=== PATIENT | male | born 1995 | race Caucasian/White ===

== ENCOUNTER → 2016-12-17 | Outpatient (REF) | payer OTHER ==
[2016-12-17 22:35] LABS: MICROSCOPIC INDICATED? MAN YES (NO)
[2016-12-17 22:43] LABS: BACTERIA, URINE NONE SEEN; CALCIUM OXALATE CRYSTALS,URINE SMALL AMOUNT /hpf; MICROSCOPIC EXAM PERFORMED; RBC, URINE 0-1 /hpf (0-3); SQUAMOUS EPITHELIAL CELL URINE NONE SEEN /hpf (SMALL AMT); WBC, URINE 0-1 /hpf (0-3)
[2016-12-18 14:29] LABS: HYALINE CAST, URINE NONE SEEN /lpf (0-1)
== END ==
LOC: M LAB REF 09:19
PROVIDERS: ATTEND Physician Assistant
DX: R53.83 Other fatigue (principal); R50.9 Fever, unspecified; M54.5 Low back pain

== ENCOUNTER → 2019-01-15 | Outpatient (CLI) | payer BC, OTHER ==
--- NOTE | 2019-01-15 11:45 | REP ---
Two views abdomen: 01/15/2019. Indication: Fatigue. Comparison: 07/15/2014. Findings: There are no air-fluid levels throughout the small or large bowel. There is no free intraperitoneal air. The visualized organs are normal. No acute osseous abnormalities are present. Pelvic phleboliths are redemonstrated. Impression: No acute abdominal process. Electronically Signed by Catalino Zapata DO 01/15/2019 11:37 A
[2019-01-15 13:40] LABS: BASO % 0.3 % (0.0-1.0); EOS % 0.3 % (0.0-3.0); HEMATOCRIT 41.6 % (42.0-52.0); HEMOGLOBIN 14.1 g/dl (13.5-17.5); LYMPH # 2.8 10^3/uL (1.5-5.0); LYMPH % 41.9 % (24.0-44.0); MEAN CORPUSCULAR HEMOGLOBIN 29.6 pg (27.0-33.0); MEAN CORPUSCULAR HGB CONC 33.9 g/dl (32.0-36.5); MEAN CORPUSCULAR VOLUME 87.2 fl (80.0-96.0); MONO # 0.7 10^3/uL (0.0-0.8); NEUTROPHILS # 3.1 10^3/uL (1.5-8.5); NEUTROPHILS % 46.4 % (36.0-66.0); PLATELET COUNT, AUTOMATED 320 10^3/uL (150-450); RED BLOOD COUNT 4.77 10^6/uL (4.30-6.10); WHITE BLOOD COUNT 6.7 10^3/uL (4.0-10.0)
[2019-01-15 14:09] LABS: ALBUMIN 3.9 GM/DL (3.2-5.2); ALT/SGPT 47 U/L (12-78); AMYLASE 34 U/L (25-115); BILIRUBIN,TOTAL 0.6 MG/DL (0.2-1.0); BLOOD UREA NITROGEN 16 MG/DL (7-18); CALCIUM LEVEL 9.4 MG/DL (8.5-10.1); CARBON DIOXIDE LEVEL 29 MEQ/L (21-32); CHLORIDE LEVEL 105 MEQ/L (98-107); CREATININE FOR GFR 1.27 MG/DL (0.70-1.30); FREE T4 1.29 NG/DL (0.76-1.46); GLOMERULAR FILTRATION RATE > 60.0 (>60); GLUCOSE, FASTING 88 MG/DL (70-100); LIPASE 102 U/L (73-393); POTASSIUM SERUM 4.4 MEQ/L (3.5-5.1); SODIUM LEVEL 140 MEQ/L (136-145); THYROID STIMULATING HORMONE 0.779 uIU/ML (0.358-3.740)
[2019-01-15 14:15] LABS: ERYTHROCYTE SEDIMENTATION RATE 5 mm/hr (0-15)
[2019-01-16 14:27] LABS: EBV VIRAL CAPSID AG IgM <36.0 U/mL (0.0-35.9)
== END ==
LOC: M WUC 11:12
PROVIDERS: ATTEND Physician Assistant
DX: R10.84 Generalized abdominal pain (principal); R53.83 Other fatigue

== ENCOUNTER 2019-05-26 16:06 | Emergency (ER) | payer OTHER, BC ==
[~2019-05-26] VITALS: Ht 182.9 cm; Wt 99.9 kg
[2019-05-26] MEDS ORDERED: TYLE (16:13)
[2019-05-26] MEDS ORDERED: BENA25CA4 PO (16:22)
[2019-05-26] MEDS ORDERED: FAMOTIDINE INJ 20MG/2ML VIAL (S0028) IVP ONE (17:00)
[2019-05-26] MEDS ORDERED: methylPREDNISolone INJ 125 MG/2 ML VIAL (J2930) IV ONE (17:00)
[2019-05-26] MEDS ORDERED: PRED20TA PO (17:35)
[2019-05-26 18:19] VITALS: BP 120/69
== END 2019-05-26 18:21 | disposition home or self-care (01) ==
LOC: M ED 16:06
DX: L29.9 Pruritus, unspecified (principal); Z79.899 Other long term (current) drug therapy; Z88.0 Allergy status to penicillin; Z88.8 Allergy status to other drugs, medicaments and biological substances
CPT/HCPCS: 96374; 99284; J2930

== ENCOUNTER → 2019-06-07 | Outpatient (REF) | payer OTHER ==
[~2019-06-07] MED LIST: BENA25CA4 PO; PRED20TA PO; TYLE
== END ==
LOC: M LAB REF 17:03
PROVIDERS: ATTEND Physician Assistant
DX: J02.9 Acute pharyngitis, unspecified (principal)

== ENCOUNTER 2019-10-21 13:24 | Inpatient (IN) | payer BC, OTHER ==
[~2019-10-21] VITALS: Ht 182.9 cm; Wt 92.6 kg
[~2019-10-21 13:24] MED LIST changes: -FLOM0.4C39 PO; -PHEN25IN3 IJ; -PROTPAK PO; -ULTR37.54 PO; -ZOFR4TAB16 PO
[2019-10-21] MEDS ORDERED: PHEN25IN3 IJ (13:34)
[2019-10-21] MEDS ORDERED: ONDANSETRON 4MG/2ML VIAL IV ONE (14:00)
[2019-10-21] MEDS ORDERED: MORPHINE 4 MG/ML 1ML VIAL/SYRINGE (J2270) IV ONE (14:00)
[2019-10-21] MEDS ORDERED: NS 1,000 ML IV ONE ×2 (14:00→15:30)
[2019-10-21 14:37] LABS: BASO % 0.1 % (0.0-1.0); HEMOGLOBIN 15.3 g/dl (13.5-17.5); LYMPH # 1.3 10^3/uL (1.5-5.0); LYMPH % 8.3 % (24.0-44.0); MEAN CORPUSCULAR HEMOGLOBIN 29.5 pg (27.0-33.0); MEAN CORPUSCULAR HGB CONC 35.6 g/dl (32.0-36.5); MONO # 1.1 10^3/uL (0.0-0.8); NEUTROPHILS # 12.8 10^3/uL (1.5-8.5); NEUTROPHILS % 84.1 % (36.0-66.0); PLATELET COUNT, AUTOMATED 428 10^3/uL (150-450); RED BLOOD COUNT 5.18 10^6/uL (4.30-6.10); WHITE BLOOD COUNT 15.2 10^3/uL (4.0-10.0)
[2019-10-21 15:08] LABS: BILIRUBIN,DIRECT 0.2 MG/DL (0.0-0.2); BILIRUBIN,TOTAL 0.6 MG/DL (0.2-1.0); CALCIUM LEVEL 11.1 MG/DL (8.5-10.1); CREATININE FOR GFR 1.55 MG/DL (0.70-1.30); POTASSIUM SERUM 4.1 MEQ/L (3.5-5.1)
--- NOTE | 2019-10-21 16:03 | REPVR ---
PROCEDURE INFORMATION: Exam: XR Chest, 1 View Exam date and time: 10/21/2019 3:40 PM Age: 24 years old Clinical indication: Cough, fever TECHNIQUE: Imaging protocol: XR of the chest Views: 1 view. COMPARISON: 1. CR - Abdomen,Flat Upright,PA CHEST 07/10/2014 4:57 PM 2. ME - ABDOMEN 1 VIEW (KUB) 10/21/2019 12:57:53 PM FINDINGS: Limitations: The patient is rotated. Lungs: No central pulmonary vascular congestion. The right lung appears well aerated. There is slight increased diffuse ground-glass opacity of the left lateral mid and lower lung; this is asymmetric compared to the right lung. Pleural space: No pleural effusion. No pneumothorax. Heart/Mediastinum: The cardiomediastinal silhouette is within normal limits for size and contour. Bones/joints: No acute osseous abnormality. Soft tissues: A long curvilinear metallic wire opacity projects over the left lateral lung and left lateral chest wall. Gastrointestinal tract: The stomach is incompletely imaged. The imaged stomach appears largely distended with gas. IMPRESSION: 1. Nonspecific slight increased diffuse opacity of the left lateral mid and lower lung. It is unclear if this is artifactual and secondary to the patient's rotated positioning or if this represents true pulmonary airspace opacity. Pulmonary infection is possible in this patient with given history of cough and fever. Re-evaluation with a dedicated nonportable upright non-rotated chest x-ray may be useful. 2. A long curvilinear metallic wire opacity projects over the left lateral lung and left lateral chest wall. Clinical correlation is needed for its identification and to determine whether this lies outside the patient or inside the patient. It could represent a wire associated with a face mask. 3. The stomach is incompletely imaged. The imaged stomach appears largely distended with gas. Electronically signed by: Osmel Espinoza On 10/21/2019 16:03:44 PM
[2019-10-21] MEDS ORDERED: ISOVUE-370 76% 100ML VIAL As Ordered ONE (16:29)
--- NOTE | 2019-10-21 17:01 | REPVR ---
PROCEDURE INFORMATION: Exam: CT Abdomen And Pelvis With Contrast Exam date and time: 10/21/2019 4:48 PM Age: 24 years old Clinical indication: Abdominal pain; Additional info: Abd pain, abnormal kub-dilated bowel loop TECHNIQUE: Imaging protocol: Computed tomography of the abdomen and pelvis with intravenous contrast. Radiation optimization: All CT scans at this facility use at least one of these dose optimization techniques: automated exposure control; mA and/or kV adjustment per patient size (includes targeted exams where dose is matched to clinical indication); or iterative reconstruction. Contrast material: ISO 370; Contrast volume: 100 ml; Contrast route: INTRAVENOUS (IV); COMPARISON: CT ABD PELVIS W/O CONTRAST 07/15/2014 4:50 PM FINDINGS: Liver: The liver is moderately fatty enlarged 195 mm. Gallbladder and bile ducts: Normal. No calcified stones. No ductal dilation. Pancreas: Normal. No ductal dilation. Spleen: Normal. No splenomegaly. Adrenals: Normal. No mass. Kidneys and ureters: Normal. No hydronephrosis. Stomach and bowel: There is scattered colonic diverticula. There is a slightly prominent left upper quadrant small bowel loop at 24 mm no evidence of a transition zone possibly a focal ileus. Appendix: No evidence of appendicitis. Intraperitoneal space: Unremarkable. No free air. No significant fluid collection. Vasculature: Unremarkable. No abdominal aortic aneurysm. Lymph nodes: Unremarkable. No enlarged lymph nodes. Bladder: Unremarkable as visualized. Reproductive: Unremarkable as visualized. Bones/joints: Unremarkable. No acute fracture. Soft tissues: Unremarkable. IMPRESSION: 1. Possible mild focal small-bowel ileus left side. 2. Fatty enlarged liver. Electronically signed by: Dillon Medellin On 10/21/2019 17:01:35 PM
[2019-10-21 19:07] LABS: BLOOD UREA NITROGEN 31 MG/DL (7-18); CREATININE FOR GFR 1.34 MG/DL (0.70-1.30); GLOMERULAR FILTRATION RATE > 60.0 (>60)
[2019-10-21] MEDS ORDERED: MORPHINE 2 MG/ML 1ML VIAL (J2270) IV PRN (21:15)
[2019-10-21] MEDS: NS 1,000 ML IV SCH (21:44)
[2019-10-21] MEDS: MORPHINE 2 MG/ML 1ML VIAL (J2270) IV PRN (23:45)
--- NOTE | 2019-10-21 23:48 | HPEPDOC ---
[facility] Medical History & Physical Date of Admission Oct 21, 2019 Date of Service: Oct 21, 2019 History and Physical CHIEF COMPLAINT: Abdominal pain HISTORY OF PRESENT ILLNESS: Patient is 24 year old healthy male presented to the ER today with complaints of worsening abdominal pain with concern for an ileus. Pain started on Saturday suddenly without any known etiology associated with nausea, vomiting and diarrhea. Pain described as sharp, severe epigastric radiating midline but does shift all over the abdomen depending on his lying position. He has not been able to tolerate PO intake and has just been in bed for several days. Reportedly went to his father in law's medical office and had his bloodwork and CT abdomen done showing evidence of ileus and ALYSE and was sent to the hospital. He appear to be in moderate discomfort now. Denies other complaints apart from abdominal pain including chest pain, SOB, fever or chills. PAST MEDICAL HISTORY: Refer to HPI PAST SURGICAL HISTORY: None SOCIAL HISTORY: Denies tobacco, alcohol or drugs. FAMILY HISTORY: Mother- DM and OA ALLERGIES: Please see below. REVIEW OF SYSTEMS: 10 point ROS negative except as above HOME MEDICATIONS: Please see below. PHYSICAL EXAMINATION: VITAL SIGNS: Please see below. GENERAL: Moderate distress HEENT: Normocephalic, atraumatic, moist mucous membranes NECK: Supple CARDIOVASCULAR EXAMINATION: Normal rate, normal rhythm RESPIRATORY EXAMINATION: Clear to auscultation, no wheezing ABDOMINAL EXAMINATION: Soft, nondistended, diffuse tenderness with some guarding, no rebound tenderness, no flank bruising EXTREMITIES: Range of motion intact SKIN: No rash NEUROLOGICAL EXAMINATION: Alert and oriented 3, no focal deficits PSYCHIATRIC EXAMINATION: cooperative LABORATORY DATA: See below. IMAGING: CT Abdomen/Pelvis- IMPRESSION: 1. Possible mild focal small-bowel ileus left side. 2. Fatty enlarged liver. MICROBIOLOGY: Please see below. ASSESSMENT AND PLAN: 1. Abdominal pain - CT suspect for ileus, no major obstruction noted. - Unable to tolerate PO intake at this time. NPO for bowel rest. - IVF resuscitation, and IV analgesia with Zofran PRN for nausea. - If pain does not improve in AM, should consult surgery for evaluation. - Unsure why fatty liver is present on imaging. Patient denies alcohol use. - Liver enzymes and ALP WNL. Will check lipid panel, A1c, and hepatitis panel. 2. ALYSE - Likely pre-renal with poor PO intake for several days. - Cr 1.55, improved to 1.34 after 2L IVF. - c/w maintenance fluid. Recheck BMP in AM. DVT ppx: SCD Code status: Full code Vital Signs Vital Signs Date Time Temp Pulse Resp B/P (MAP) Pulse Ox O2 Delivery O2 Flow Rate FiO2 10/21/19 22:52 18 10/21/19 22:50 99.6 66 130/61 (84) 98 Room Air Laboratory Data Labs 24H Laboratory Tests 2 10/21/19 14:20: Immature Granulocyte % (Auto) 0.5, Neutrophils (%) (Auto) 84.1H, Lymphocytes (%) (Auto) 8.3L, Monocytes (%) (Auto) 7.0H, Eosinophils (%) (Auto) 0.0, Basophils (% ) (Auto) 0.1, Neutrophils # (Auto) 12.8H, Lymphocytes # (Auto) 1.3L, Monocytes # (Auto) 1.1H, Eosinophils # (Auto) 0.0, Basophils # (Auto) 0.0, Nucleated Red Blood Cells % (auto) 0.0, Anion Gap 7L, Glomerular Filtration Rate 58.0L, Calcium Level 11.1H, Total Bilirubin 0.6, Direct Bilirubin 0.2, Aspartate Amino Transf (AST/SGOT) 13, Alanine Aminotransferase (ALT/SGPT) 31, Alkaline Phosphatase 93, Total Protein 9.0H, Albumin 5.0, Albumin/Globulin Ratio 1.3, Lipase 147 10/21/19 17:56: Glomerular Filtration Rate > 60.0 CBC/BMP Laboratory Tests 10/21/19 14:20 10/21/19 17:56 Microbiology Microbiology 10/21/19 Respiratory Virus Panel (PCR) ([facility]) - Final, Complete Home Medications No Active Prescriptions or Reported Meds Allergies Coded Allergies: Penicillins (Verified Allergy, Intermediate, HIVES, 05/26/19) sulfamethoxazole (Verified Allergy, Intermediate, SWELLING/HIVES, 10/21/19) trimethoprim (Verified Allergy, Intermediate, HIVES, 10/21/19) A-FIB/CHADSVASC A-FIB History Current/History of A-Fib/PAF?: No Current PO Anticoag Therapy: No LETA SALGUERO MD Oct 21, 2019 23:48
[2019-10-22] MEDS: NS 1,000 ML IV SCH ×3 (02:47→16:48)
[2019-10-22] MEDS: MORPHINE 2 MG/ML 1ML VIAL (J2270) IV PRN ×4 (03:22→22:24)
[2019-10-22 06:58] LABS: HEMATOCRIT 38.5 % (42.0-52.0); MEAN CORPUSCULAR HEMOGLOBIN 29.1 pg (27.0-33.0); MEAN CORPUSCULAR HGB CONC 34.3 g/dl (32.0-36.5); PLATELET COUNT, AUTOMATED 351 10^3/uL (150-450); RED BLOOD COUNT 4.53 10^6/uL (4.30-6.10); WHITE BLOOD COUNT 11.1 10^3/uL (4.0-10.0)
[2019-10-22 07:11] LABS: HEMOGLOBIN 13.2 g/dl (13.5-17.5)
[2019-10-22 07:29] LABS: BLOOD UREA NITROGEN 27 MG/DL (7-18); CALCIUM LEVEL 9.1 MG/DL (8.5-10.1); CARBON DIOXIDE LEVEL 25 MEQ/L (21-32); CHLORIDE LEVEL 113 MEQ/L (98-107); CREATININE FOR GFR 1.17 MG/DL (0.70-1.30); GLOMERULAR FILTRATION RATE > 60.0 (>60); GLUCOSE, FASTING 107 MG/DL (70-100); SODIUM LEVEL 144 MEQ/L (136-145)
[2019-10-22 10:35] VITALS: BP 163/82
[2019-10-22] MEDS: ONDANSETRON 4MG/2ML VIAL IV PRN ×2 (13:01→22:23)
[2019-10-22 14:00] VITALS: BP 151/82
--- NOTE | 2019-10-22 15:04 | IPNPDOC ---
Subjective Date Seen The patient was seen on 10/22/19. Subjective Chief Complaint/HPI abdominal pain Events since last encounter patient seen this afternoong, complaining of crampy abdominal pain, left side, had been having diarrhea for the past few days, no BM today. had vomiting as well. But none today. He still feels weak, does not want to eat yet. No sick contacts. did not eat anything raw, no new medications taken. passing gas. Objective Physical Examination General Exam: Positive: Alert, No Acute Distress Eye Exam: Positive: PERRLA, Conjunctiva & lids normal, EOMI; Negative: Sclera icteric ENT Exam: Positive: Atraumatic, Mucous membr. moist/pink, Pharynx Normal Neck Exam: Positive: Supple; Negative: JVD, thyromegaly Chest Exam: Positive: Clear to auscultation, Normal air movement Heart Exam: Positive: Rate Normal, Regular Rhythm, Normal S1, Normal S2; Negative: Murmurs, Rubs Telemetry: Positive: No significant arrhythmia Abdomen Exam: Positive: Normal bowel sounds, Soft, Other (abdominal tenderness on left lower quadrant, no rigidity, no rebound ); Negative: Tenderness, Hepatospenomegaly Male Exam: Positive: Normal Genital Exam Extremity Exam: Positive: Normal pulses; Negative: Clubbing, Cyanosis, Edema Skin Exam: Positive: Nl turgor and temperature; Negative: Rash, Breakdown Neuro Exam: Positive: Normal Gait, Normal Speech, Cranial Nerves 3-12 NL, Reflexes 2+ Psych Exam: Positive: Mental status NL, Mood NL, Oriented x 3 Assessment /Plan Assessment ASSESSMENT: 1. acute diarrhea, abdominal pain, possible enteritis 2. Acute kidney injury, pre-renal from fluid losses 3. Fatty liver PLANS: * reviewed ct abdomen done, no transition point. He is passing gas. Given history of diarrhea, likely has gastroenteritis. No longer vomiting, abdomen is soft. * advance diet to liquids, ice chips. * IV fluids to continue for hydration, lower rate. * Will hold off antibiotics for now, as diarrhea had subsided. * will repeat labsi n Am. hopefully able to advance diet soon. * noted fatty liver, agree with lipid profile check and hepatitis paenl, a1c * Discussed with patient Plan/VTE VTE Prophylaxis Ordered?: No VTE Exclusion Mechanical Proph: Low Risk for VTE VS, I&O, 24H, Fishbone Vital Signs/I&O Vital Signs Date Time Temp Pulse Resp B/P (MAP) Pulse Ox O2 Delivery O2 Flow Rate FiO2 10/22/19 14:00 99.2 55 18 151/82 (105) 98 10/22/19 10:52 Room Air I&O- Last 24 Hours up to 6 AM 10/22/19 06:00 Intake Total 2000 ml Output Total 0 ml Balance 2000 ml Laboratory Data 24H LABS Laboratory Tests 2 10/21/19 17:56: Glomerular Filtration Rate > 60.0 10/22/19 06:29: Glomerular Filtration Rate > 60.0, Nucleated Red Blood Cells % (auto) 0.0, Anion Gap 6L, Calcium Level 9.1# CBC/BMP Laboratory Tests 10/21/19 17:56 10/22/19 06:29 Microbiology Microbiology 10/21/19 Respiratory Virus Panel (PCR) ([facility]) - Final, Complete TE,IHSAN Sorto MD Oct 22, 2019 15:04
[2019-10-22 18:10] LABS: CHOLESTEROL LEVEL 170 MG/DL (<200); CHOLESTEROL RISK RATIO 5.312 (<5); FERRITIN 306 NG/ML (26-388); HDL CHOLESTEROL 32 MG/DL (>40); LDL CHOLESTEROL 120 MG/DL (<100); NON-HDL-C 138 MG/DL; TRIGLYCERIDES LEVEL 89 MG/DL (<150)
[2019-10-22 19:35] LABS: HEMOGLOBIN A1c 5.7 %
[2019-10-22 22:00] VITALS: BP 148/79
[2019-10-23] MEDS ORDERED: ONDANSETRON 4MG/2ML VIAL IV ONE (01:30)
[2019-10-23] MEDS: MORPHINE 2 MG/ML 1ML VIAL (J2270) IV PRN ×2 (01:40→10:18)
[2019-10-23] MEDS: NS 1,000 ML IV SCH ×2 (05:18→21:00)
[2019-10-23 06:00] VITALS: BP 114/65
[2019-10-23 06:09] LABS: ALBUMIN 3.6 GM/DL (3.2-5.2); ALT/SGPT 22 U/L (12-78); BILIRUBIN,TOTAL 0.8 MG/DL (0.2-1.0); BLOOD UREA NITROGEN 23 MG/DL (7-18); CALCIUM LEVEL 8.8 MG/DL (8.5-10.1); CARBON DIOXIDE LEVEL 27 MEQ/L (21-32); CHLORIDE LEVEL 114 MEQ/L (98-107); CREATININE FOR GFR 1.17 MG/DL (0.70-1.30); GLOMERULAR FILTRATION RATE > 60.0 (>60); GLUCOSE, FASTING 98 MG/DL (70-100); POTASSIUM SERUM 3.8 MEQ/L (3.5-5.1); SODIUM LEVEL 140 MEQ/L (136-145); TOTAL PROTEIN 6.3 GM/DL (6.4-8.2)
[2019-10-23 10:16] LABS: HEPATITIS B SURFACE ANTIGEN NEGATIVE (NEGATIVE)
[2019-10-23] MEDS: ONDANSETRON 4MG/2ML VIAL IV PRN ×2 (10:17→21:00)
[2019-10-23 10:44] LABS: HEPATITIS B CORE ANTIBODY IGM NEGATIVE (NEGATIVE); HEPATITIS C VIRUS ABY INDEX 0.1 INDEX (<0.8)
[2019-10-23] MEDS: GASTROGRAFIN SOLUTION 30ML PO SCH ×2 (11:16→11:30)
[2019-10-23] MEDS: PANTOPRAZOLE 40MG VIAL (C9113 PER 1) IV SCH (11:16)
[2019-10-23 11:54] LABS: HEPATITIS A ANTIBODY IGM NEGATIVE (NEGATIVE)
[2019-10-23] MEDS ORDERED: ISOVUE-370 76% 100ML VIAL As Ordered ONE (12:00)
[2019-10-23 12:14] LABS: APPEARANCE, URINE CLEAR (CLEAR); BACTERIA, URINE AUTO NEGATIVE (NEGATIVE); BILIRUBIN, URINE AUTO NEGATIVE (NEGATIVE); BLOOD, URINE BLOOD NEGATIVE (NEGATIVE); COLOR, URINE YELLOW (YELLOW); GLUCOSE, URINE (UA) AUTO NEGATIVE (NEGATIVE); KETONE, URINE AUTO TRACE mg/dL (NEGATIVE); LEUKOCYTE ESTERASE, URINE AUTO NEGATIVE (NEGATIVE); MUCUS, URINE SMALL (NEGATIVE); NITRITE, URINE AUTO NEGATIVE (NEGATIVE); PROTEIN, URINE AUTO NEGATIVE (NEGATIVE); RBC, URINE AUTO 0 /HPF (0-3); SPECIFIC GRAVITY URINE AUTO 1.025 (1.002-1.035); SQUAMOUS EPITHELIAL CELL UR AU 0 /HPF (0-6); WBC, URINE AUTO 0 /HPF (0-3)
--- NOTE | 2019-10-23 13:13 | REPVR ---
PROCEDURE INFORMATION: Exam: CT Abdomen And Pelvis With Contrast Exam date and time: 10/23/2019 12:20 PM Age: 24 years old Clinical indication: Abdominal pain; Generalized; Additional info: Recurrent abdominal pain TECHNIQUE: Imaging protocol: Computed tomography of the abdomen and pelvis with intravenous contrast. Radiation optimization: All CT scans at this facility use at least one of these dose optimization techniques: automated exposure control; mA and/or kV adjustment per patient size (includes targeted exams where dose is matched to clinical indication); or iterative reconstruction. Contrast material: ISOVUE 370; Contrast volume: 100 ml; Contrast route: INTRAVENOUS (IV); COMPARISON: CT ABD/PEL W/IV CONTRAST ONLY 10/21/2019 4:32 PM FINDINGS: Liver: Moderate hepatomegaly with diffuse fatty infiltration. Gallbladder and bile ducts: Normal. No calcified stones. No ductal dilation. Pancreas: Normal. No ductal dilation. Spleen: Normal. No splenomegaly. Adrenals: Normal. No mass. Kidneys and ureters: Normal. No hydronephrosis. Stomach and bowel: There is diffuse gastric fundus mucosal wall thickening which could be secondary to underdistention or gastritis. Interval resolution of the focal small bowel ileus in the left upper quadrant noted on the previous study.There is no evidence for intestinal obstruction. Appendix: No evidence of appendicitis. Intraperitoneal space: Unremarkable. No free air. No significant fluid collection. Vasculature: Unremarkable. No abdominal aortic aneurysm. Lymph nodes: Unremarkable. No enlarged lymph nodes. Bladder: Unremarkable as visualized. Reproductive: Unremarkable as visualized. Bones/joints: Unremarkable. No acute fracture. Soft tissues: Unremarkable. Other findings: No evidence of acute abnormality in the abdomen. IMPRESSION: 1. Moderate hepatomegaly with diffuse fatty infiltration. 2. There is diffuse gastric fundus mucosal wall thickening which could be secondary to underdistention or gastritis. 3. Interval resolution of the focal small bowel ileus in the left upper quadrant noted on the previous study.There is no evidence for intestinal obstruction. 4. No evidence of acute abnormality in the abdomen. Electronically signed by: Aguilar Jason On 10/23/2019 13:13:58 PM
[2019-10-23 14:00] VITALS: BP 131/64
--- NOTE | 2019-10-23 15:24 | IPNPDOC ---
Text Note Date of Service The patient was seen on 10/23/19. NOTE subjective: Patient is seen this morning. patient mentioned that he has been having dysuria, pressure suprapubic region. No penile discharges were noted. No diarrhea. No vomiting. he still has crampy abdominal pain, seems worse when he eats liquids. His pain is 5/10 at present, cramping left sided, no back pain noted, objective: Vital Sign - Last 24 Hours 10/22/19 10/22/19 10/22/19 10/22/19 15:53 16:05 22:00 22:24 Temp 99.8 Pulse 59 Resp 15 15 16 16 B/P (MAP) 148/79 (102) Pulse Ox 97 O2 Delivery Room Air Room Air 10/22/19 10/23/19 10/23/19 10/23/19 22:34 01:40 01:50 06:00 Temp 99.5 Pulse 63 Resp 16 16 14 18 B/P (MAP) 114/65 (81) Pulse Ox 98 O2 Delivery Room Air Room Air Room Air Room Air 10/23/19 10/23/19 10/23/19 10:18 11:16 14:00 Temp 99.2 Pulse 78 Resp 15 15 14 B/P (MAP) 131/64 (86) Pulse Ox 96 O2 Delivery Room Air general: awake, alert, oriented x 3. appears more comfortable today than yesterday. HEENT: anicteric sclerae, no nasal discharges, no throat exudates noted. Neck: supple, no cervical tenderness, no bruits, no stridor noted Chest; clear breath sounds, no rales or wheezing CVS: s1 and s2 distinct, no murmurs Abdomen: soft, epigastric tenderness, no RUQ tenderness, no rigidity noted, no guarding, positive left lower quadrant and flank tenderness Extremities: No edema, no calf tenderness, no rigidity , no joint effusions noted [place] MAGISTRATE: awake, alert, oriented x 3. No focal deficits noted repeat CT scan today 1. Moderate hepatomegaly with diffuse fatty infiltration. 2. There is diffuse gastric fundus mucosal wall thickening which could be secondary to underdistention or gastritis. 3. Interval resolution of the focal small bowel ileus in the left upper quadrant noted on the previous study.There is no evidence for intestinal obstruction. 4. No evidence of acute abnormality in the abdomen Laboratory Tests 2 10/23/19 00:18: Urine Color YELLOW, Urine Appearance CLOUDYH, Urine pH 6.0, Urine Specific [place] 1.028, Urine Protein NEGATIVE, Urine Glucose (UA) NEGATIVE, Urine Ketones TRACEH, Urine Blood NEGATIVE, Urine Nitrite NEGATIVE, Urine Bilirubin NEGATIVE, Urine Urobilinogen 4.0H, Urine Leukocyte Esterase NEGATIVE, Urine WBC (Auto) 0, Urine RBC (Auto) 0, Urine Hyaline Casts (Auto) 0, Urine Bacteria (Auto) NEGATIVE, Urine Squamous Epithelial Cells 0, Urine Amorphous Sediment SMALLH, Urine Mucus (Auto) SMALL, Urine Sperm (Auto) 10/23/19 05:22: Anion Gap , Glomerular Filtration Rate > 60.0, Calcium Level 8.8, Total Bilirubin 0.8, Aspartate Amino Transf (AST/SGOT) 9, Alanine Aminotransferase (ALT/SGPT) 22, Alkaline Phosphatase 62, Total Protein 6.3#L, Albumin 3.6#, Albumin/Globulin Ratio 1.3 10/23/19 11:13: Urine Color YELLOW, Urine Appearance CLEAR, Urine pH 6.0, Urine Specific [place] 1.025, Urine Protein NEGATIVE, Urine Blood NEGATIVE, Urine Nitrite NEGATIVE, Urine Bilirubin NEGATIVE, Urine Urobilinogen 4.0H, Urine WBC (Auto) 0, Urine RBC (Auto) 0, Urine Hyaline Casts (Auto) 0, Urine Bacteria (Auto) NEGATIVE, Urine Squamous Epithelial Cells 0, Urine Mucus (Auto) SMALL, Urine Sperm (Auto) , Urine Glucose (Auto)(UA) NEGATIVE, Urine Ketones (Auto) TRACEH, Urine Leukocyte Esterase (Auto) NEGATIVE ASSESSMENT: 1. acute diarrhea, abdominal pain, possible enteritis 2. Acute kidney injury, pre-renal from fluid losses 3. Fatty liver 4. Hepatomegaly and fatty liver 5. Ileus, resolved 6. Hyperlipidemia, LDL 120 PLANS: No RUQ tenderness, noted hepatomegaly, with fatty liver, neg hep panel, discussed on importance to monitor diet, low fat diet, and recheck LDL, if still high in 3-6 months, may need statins. He is passing gas, no vomiting. Ana dd IV protonix due to gastritc thickening. He is not able to tolerate much oral intake even fluids for now, thus IV fluid to continue. No antibiotics needed at this time. give a dose of toradol and percocet, decrease morphine. repeat CT ordered, findings as noted above. moderate risk VS,Fishbone, I+O VS, Fishbone, I+O Laboratory Tests 10/23/19 05:22 Vital Signs Date Time Temp Pulse Resp B/P (MAP) Pulse Ox O2 Delivery O2 Flow Rate FiO2 10/23/19 14:00 99.2 78 14 131/64 (86) 96 Room Air I&O- Last 24 Hours up to 6 AM 10/23/19 06:00 Intake Total 2910 ml Output Total 825 ml Balance 2085 ml IHSAN HINSON MD Oct 23, 2019 15:24
[2019-10-23] MEDS ORDERED: KETOROLAC 30 MG/ML 1ML VIAL IV ONE (16:00)
[2019-10-23] MEDS: PERCOCET 5MG/325MG TAB PO PRN (21:00)
[2019-10-23 22:00] VITALS: BP 136/82
[2019-10-24] MEDS: ONDANSETRON 4MG/2ML VIAL IV PRN ×2 (04:36→10:07)
[2019-10-24] MEDS: PERCOCET 5MG/325MG TAB PO PRN ×2 (04:36→10:07)
[2019-10-24 06:00] VITALS: BP 151/79
[2019-10-24] MEDS ORDERED: NS 500 ML IV ONE (06:45)
[2019-10-24] MEDS: NS 1,000 ML IV SCH (07:03)
[2019-10-24] MEDS: PANTOPRAZOLE 40MG VIAL (C9113 PER 1) IV SCH (08:10)
[2019-10-24 08:20] LABS: HEMATOCRIT 36.2 % (42.0-52.0); HEMOGLOBIN 12.7 g/dl (13.5-17.5); MEAN CORPUSCULAR HEMOGLOBIN 29.4 pg (27.0-33.0); MEAN CORPUSCULAR HGB CONC 35.1 g/dl (32.0-36.5); MEAN CORPUSCULAR VOLUME 83.8 fl (80.0-96.0); PLATELET COUNT, AUTOMATED 281 10^3/uL (150-450); RED BLOOD COUNT 4.32 10^6/uL (4.30-6.10); WHITE BLOOD COUNT 7.9 10^3/uL (4.0-10.0)
[2019-10-24 09:07] LABS: ALBUMIN 3.5 GM/DL (3.2-5.2); ALT/SGPT 26 U/L (12-78); BILIRUBIN,TOTAL 0.8 MG/DL (0.2-1.0); BLOOD UREA NITROGEN 21 MG/DL (7-18); CALCIUM LEVEL 8.9 MG/DL (8.5-10.1); CARBON DIOXIDE LEVEL 25 MEQ/L (21-32); CHLORIDE LEVEL 112 MEQ/L (98-107); CREATININE FOR GFR 1.04 MG/DL (0.70-1.30); GLOMERULAR FILTRATION RATE > 60.0 (>60); GLUCOSE, FASTING 87 MG/DL (70-100); POTASSIUM SERUM 3.7 MEQ/L (3.5-5.1); SODIUM LEVEL 141 MEQ/L (136-145)
[2019-10-24] MEDS ORDERED: TAMSULOSIN 0.4 MG CAP PO ONE (13:00)
[2019-10-24] MEDS ORDERED: ULTR37.54 PO (14:34)
[2019-10-24] MEDS ORDERED: FLOM0.4C39 PO (14:34)
[2019-10-24] MEDS ORDERED: PROTPAK PO (14:34)
[2019-10-24] MEDS ORDERED: ZOFR4TAB16 PO (14:34)
--- NOTE | 2019-10-24 14:48 | DS.PDOC ---
Discharge Summary General Date of Admission Oct 21, 2019 at 21:08 Date of Discharge october Discharge Summary PROCEDURES PERFORMED DURING STAY: Ct abdomen ADMITTING DIAGNOSES: 1 Ileus DISCHARGE DIAGNOSES: 1. acute diarrhea, abdominal pain, possible enteritis 2. Acute kidney injury, pre-renal from fluid losses 3. Fatty liver 4. Hepatomegaly and fatty liver 5. Ileus, resolved 6. Hyperlipidemia, LDL 120 7. Suspected gastritis, has history of severe gerd and had history of EGD COMPLICATIONS/CHIEF COMPLAINT: Ag, Ileus. HOSPITAL COURSE: [HISTORY OF PRESENT ILLNESS: Mr Amado is a 24 year old man w ithout any medical problems, came to hospital due to worsening abdominal pain, left sided. He had been having diarrhea, prior to admission, with associated poor oral intake. On arrival to ED, noted to have acute kidney injury. CT abdomen done showed possible ileus, with incidental finding of hepatomegaly, with fatty liver, LFTs normal. He was admitted as he is not able to tolerate anything PO. IV fluids has been started, and renal function improved. He has not been on antibiotics, as his diarrhea resolved PRIOR to admission. He continued to have pain despite improvement of renal failure. He passed gas and BM. CT abdomen repeated showed no ileus, possible gastritis. IV ppI started. When I inf ormed patient of this finding, he did mention that he has been previously had EGD not too long ago due to similar symptoms but as per him it was only GERD, no ulcers were noted, but he has not been on any PPI chronically. He also mentioned dysuria, but denies any penile discharges, not sexually active, no rior history of std, no lesions. renal failure have resolved. Urinalysis negative for any acute infection. will do a trial of flomax to improve urinary flow. Refer to urologist as outpatient, will also refer to GI due to gastritis, fatty liver. Advised on healthy diet, low fat, and repeat LDL in a few months after diet modifcaiton, LDL now is 120. Patient seen today, tolerated diet now. Pain better. On exam, ,noted clear breath sounds, ,s1 and s2 distinct, no murmurs, no abdominal tenderness, no guarding positive, bowel sounds. He request for pain medication in case his pain is severe again at home, ,only short course of ultracet, not to be abuse or misuse. Avoiding NSAID toradol for pain relief as there is a concern of gastritis in his CT. patient is stable for discharge to home. . PSYCHIATRIC SECURITY NURSE database checked - patient not on any controlled substance. DISCHARGE MEDICATIONS: Please see below. ALLERGIES: Please see below. PHYSICAL EXAMINATION ON DISCHARGE: Vital Sign - Last 24 Hours 10/23/19 10/23/19 10/23/19 10/24/19 21:00 21:30 22:00 04:36 Temp 99.1 Pulse 62 Resp 18 18 16 18 B/P (MAP) 136/82 (100) Pulse Ox 99 O2 Delivery Room Air 10/24/19 10/24/19 10/24/19 10/24/19 05:06 06:00 10:07 10:54 Temp 97.4 Pulse 58 Resp 16 16 16 16 B/P (MAP) 151/79 (103) Pulse Ox 100 O2 Delivery Room Air awake, alert, oriented x 3. Not in any distress. Clear breath sounds, no rales or wheezing Cardio: s1 and s2 distinct, no murmurs abdomen: soft, positive bowel sounds, not tender, no rigidity noted. Extremities: No edema, no calf tenderness, LABORATORY DATA: IMAGING: Ct abdomen with contrast PROGNOSIS:good ACTIVITY: as tolerated DIET:BLAND DIET. Make a food diary and determine if it causes symptoms. If it does, avoid. maintain healthy diet DISCHARGE PLAN: home DISPOSITION: . HOME DISCHARGE INSTRUCTIONS: [place]ck[place] diet. Protonix 40 mg PO daily x 2-4 weeks. Use pain medication sparingly, not for fdc use. Do not drive while taking tramadol. Do not use with alcohol or other sedating medication. This has addiction potential. DO NOT use unless severe pain. take tylenol for mild pain. may start on flomax, ITEMS TO FOLLOWUP ON ON OUTPATIENT: refer to gastroenterology due to gastritis/GERD, fatty liver. refer to urology due to difficulty urination, no UTI ff-up with your PCP in 1-2 weeks, will need follow up with lipid prpofile check in 3-6 months, recommend repeat US in 3-6 months DISCHARGE CONDITION: [Stable]. TIME SPENT ON DISCHARGE: Greater than minutes. Vital Signs/I&Os Vital Signs Date Time Temp Pulse Resp B/P (MAP) Pulse Ox O2 Delivery O2 Flow Rate FiO2 10/24/19 10:54 16 10/24/19 06:00 97.4 58 151/79 (103) 100 Room Air I&O- Last 24 Hours up to 6 AM 10/24/19 06:00 Intake Total 1800 ml Output Total 1300 ml Balance 500 ml Laboratory Data Labs 24H Laboratory Tests 2 10/24/19 06:25: Nucleated Red Blood Cells % (auto) 0.0, Anion Gap 4L, Glomerular Filtration Rate > 60.0, Calcium Level 8.9, Total Bilirubin 0.8, Aspartate Amino Transf (AST/SGOT) 12, Alanine Aminotransferase (ALT/SGPT) 26, Alkaline Phosphatase 64, Total Protein 6.0L, Albumin 3.5, Albumin/Globulin Ratio 1.4 CBC/BMP Laboratory Tests 10/24/19 06:25 Microbiology Microbiology 10/21/19 Respiratory Virus Panel (PCR) ([facility]) - Final, Complete Discharge Medications Scheduled Pantoprazole Sodium (Protonix) 40 Mg Granpkt.dr, 40 MG PO DAILY Tamsulosin HCl (Flomax) 0.4 Mg Capsule, 0.4 MG PO DAILY Scheduled PRN Ondansetron HCl (Zofran) 4 Mg Tablet, 1 TAB PO Q6-8HP PRN for nausea/vomiting Tramadol HCl/Acetaminophen (Ultracet Tablet) 1 Each Tablet, 1 TAB PO Q6HP PRN for pain Allergies Coded Allergies: Penicillins (Verified Allergy, Intermediate, HIVES, 05/26/19) sulfamethoxazole (Verified Allergy, Intermediate, SWELLING/HIVES, 10/21/19) trimethoprim (Verified Allergy, Intermediate, HIVES, 10/21/19) IHSAN HINSON MD Oct 24, 2019 14:38
== END 2019-10-24 16:10 | disposition home or self-care (01) | DRG 241 ==
LOC: M ED 13:24 → M ED INP 21:08 → M MSPAV 10-22 10:47
PROVIDERS: ADMIT Student in an Organized Health Care Education/Training Program; ATTEND Internal Medicine
DX: K29.70 Gastritis, unspecified, without bleeding (principal); N17.9 Acute kidney failure, unspecified; K76.0 Fatty (change of) liver, not elsewhere classified; K56.7 Ileus, unspecified; K52.9 Noninfective gastroenteritis and colitis, unspecified; E78.5 Hyperlipidemia, unspecified; K21.9 Gastro-esophageal reflux disease without esophagitis; Z88.0 Allergy status to penicillin; Z88.2 Allergy status to sulfonamides; Z88.8 Allergy status to other drugs, medicaments and biological substances; Z79.899 Other long term (current) drug therapy

== ENCOUNTER → 2019-10-21 | Outpatient (CLI) | payer BC, OTHER ==
[~2019-10-21] MED LIST changes: +FLOM0.4C39 PO; +PHEN25IN3 IJ; +PROTPAK PO; +ULTR37.54 PO; +ZOFR4TAB16 PO
[2019-10-21 14:39] LABS: BASO % 0.1 % (0.0-1.0); HEMATOCRIT 46.2 % (42.0-52.0); HEMOGLOBIN 16.1 g/dl (13.5-17.5); LYMPH # 1.4 10^3/uL (1.5-5.0); LYMPH % 9.3 % (24.0-44.0); MEAN CORPUSCULAR HEMOGLOBIN 29.4 pg (27.0-33.0); MEAN CORPUSCULAR HGB CONC 34.8 g/dl (32.0-36.5); MEAN CORPUSCULAR VOLUME 84.5 fl (80.0-96.0); MONO % 6.2 % (0.0-5.0); NEUTROPHILS # 12.8 10^3/uL (1.5-8.5); NEUTROPHILS % 84.1 % (36.0-66.0); PLATELET COUNT, AUTOMATED 472 10^3/uL (150-450); RED BLOOD COUNT 5.47 10^6/uL (4.30-6.10); WHITE BLOOD COUNT 15.2 10^3/uL (4.0-10.0)
[2019-10-21 15:02] LABS: BILIRUBIN,TOTAL 0.7 MG/DL (0.2-1.0); CALCIUM LEVEL 10.9 MG/DL (8.5-10.1); CREATININE FOR GFR 1.57 MG/DL (0.70-1.30); GLOMERULAR FILTRATION RATE 57.1 (>60); POTASSIUM SERUM 3.8 MEQ/L (3.5-5.1); TOTAL PROTEIN 8.9 GM/DL (6.4-8.2)
--- NOTE | 2019-11-25 11:48 | REP ---
KUB: TWO-VIEWS HISTORY: Nausea with vomiting. Abdominal tenderness. Abdominal pain. COMPARISON: 01/15/2019. FINDINGS: Supine views of the abdomen demonstrate mild gaseous distention of the stomach. There is also a mildly dilated air filled loop of small bowel in the left upper abdomen. There is air and stool in the nondistended colon. No evidence of obstruction. Psoas margins and flank stripes are intact. There are phleboliths in the pelvis. IMPRESSION: Mild gaseous distention of the stomach and a single loop of left upper quadrant small bowel. Question localized ileus. MTDD
== END ==
LOC: M WUC 12:46
PROVIDERS: ATTEND Physician Assistant
DX: R11.2 Nausea with vomiting, unspecified (principal); R10.84 Generalized abdominal pain

== ENCOUNTER → 2019-11-05 | Outpatient (REF) | payer OTHER, BC ==
[~2019-11-05] MED LIST changes: +FLOM0.4C39 PO; +PHEN25IN3 IJ; +PROTPAK PO; +ULTR37.54 PO; +ZOFR4TAB16 PO
[2019-11-05 14:52] LABS: APPEARANCE, URINE CLEAR (CLEAR); BACTERIA, URINE AUTO NEGATIVE (NEGATIVE); BILIRUBIN, URINE AUTO NEGATIVE (NEGATIVE); BLOOD, URINE BLOOD NEGATIVE (NEGATIVE); COLOR, URINE YELLOW (YELLOW); GLUCOSE, URINE (UA) AUTO NEGATIVE (NEGATIVE); KETONE, URINE AUTO NEGATIVE (NEGATIVE); LEUKOCYTE ESTERASE, URINE AUTO NEGATIVE (NEGATIVE); MUCUS, URINE SMALL (NEGATIVE); NITRITE, URINE AUTO NEGATIVE (NEGATIVE); PROTEIN, URINE AUTO NEGATIVE (NEGATIVE); RBC, URINE AUTO 0 /HPF (0-3); SPECIFIC GRAVITY URINE AUTO 1.017 (1.002-1.035); SQUAMOUS EPITHELIAL CELL UR AU 0 /HPF (0-6); UROBILINOGEN, URINE AUTO 0.2 mg/dL (0.0-2.0); WBC, URINE AUTO 1 /HPF (0-3)
== END ==
LOC: M LAB REF 10:00
PROVIDERS: ATTEND Nurse Practitioner Family
DX: R39.198 Other difficulties with micturition (principal)

== ENCOUNTER 2020-04-14 15:33 | Emergency (ER) | payer BC, OTHER ==
[~2020-04-14] VITALS: Ht 182.9 cm; Wt 100.0 kg
[2020-04-14] MEDS ORDERED: PROP20TA72 PO (15:52)
[2020-04-14] MEDS ORDERED: CLON-412 PO (15:52)
[2020-04-14] MEDS ORDERED: ONDA8TAB10 PO (15:52)
[2020-04-14] MEDS ORDERED: NS 1,000 ML IV ONE (16:00)
[2020-04-14 16:29] LABS: BASO % 0.2 % (0.0-1.0); EOS % 0.1 % (0.0-3.0); HEMATOCRIT 42.2 % (42.0-52.0); HEMOGLOBIN 14.7 g/dl (13.5-17.5); LYMPH % 16.5 % (24.0-44.0); MEAN CORPUSCULAR HEMOGLOBIN 29.8 pg (27.0-33.0); MEAN CORPUSCULAR HGB CONC 34.8 g/dl (32.0-36.5); MEAN CORPUSCULAR VOLUME 85.4 fl (80.0-96.0); MONO # 1.8 10^3/uL (0.0-0.8); MONO % 9.5 % (0.0-5.0); NEUTROPHILS # 13.4 10^3/uL (1.5-8.5); PLATELET COUNT, AUTOMATED 332 10^3/uL (150-450); RED BLOOD COUNT 4.94 10^6/uL (4.30-6.10); WHITE BLOOD COUNT 18.3 10^3/uL (4.0-10.0)
--- NOTE | 2020-04-14 16:38 | REP ---
INDICATION: Drug Overdose. COMPARISON: Comparison study July 14, 2007.. TECHNIQUE: Helical scanning is acquired. 5 mm axial images were reformatted. Coronal MPR images were generated. FINDINGS: Bone window settings demonstrate an intact bony calvarium. There is no evidence of skull fracture or incidental bony calvarial lesion. The visualized paranasal sinuses appear clear. No intraorbital abnormality is seen. On soft tissue window setting images; the lateral, third, and fourth ventricles are normal in size and position. Pritchard-white differentiation pattern is normal above and below the tentorium. There are is no evidence of intracranial hemorrhage. No mass, edema, infarction, or midline shift is seen. No extra-axial fluid collection is appreciated. IMPRESSION: Negative noncontrast head CT. <Electronically signed by Sarath Bacon > 04/14/20 [id number]
--- NOTE | 2020-04-14 16:39 | REP ---
INDICATION: Drug Overdose. COMPARISON: None. TECHNIQUE: Helical scanning is acquired and overlapping 2 mm high resolution axial images were generated and reviewed at bone and soft tissue window settings. Coronal and sagittal multiplanar re-formations images are generated. FINDINGS: There is no evidence of cervical spine element fracture. No skull base fracture is seen. Cervical vertebral body heights are preserved. Alignment is normal. Facet joints are normally aligned bilaterally at each cervical level on multiplanar re-formations images. There is no evidence of intraspinal or paraspinal hematoma. No extra vertebral abnormality is seen. There is some straightening of the normal cervical lordosis. IMPRESSION: Negative CT study of the cervical spine without contrast. No fracture seen. <Electronically signed by Sarath Bacon > 04/14/20 [id number]
[2020-04-14 17:06] LABS: AMPHETAMINES LEVEL URINE NEGATIVE (NEGATIVE); BARBITURATES URINE NEGATIVE (NEGATIVE); BENZODIAZEPINES URINE NEGATIVE (NEGATIVE); CANNABINOIDS URINE POSITIVE (NEGATIVE); COCAINE METABOLITE URINE NEGATIVE (NEGATIVE); METHADONE URINE NEGATIVE (NEGATIVE); OPIATES URINE POSITIVE (NEGATIVE); PHENCYCLIDINE URINE NEGATIVE (NEGATIVE)
[2020-04-14 17:33] LABS: ACETAMINOPHEN LEVEL < 2.0 UG/ML (10.0-30.0); ALBUMIN 4.4 GM/DL (3.2-5.2); ALT/SGPT 46 U/L (12-78); BILIRUBIN,DIRECT 0.2 MG/DL (0.0-0.2); BILIRUBIN,TOTAL 0.9 MG/DL (0.2-1.0); BLOOD UREA NITROGEN 22 MG/DL (7-18); CALCIUM LEVEL 9.9 MG/DL (8.5-10.1); CARBON DIOXIDE LEVEL 27 MEQ/L (21-32); CHLORIDE LEVEL 100 MEQ/L (98-107); CPK CREATINE PHOSPHOKINASE 792 U/L (39-308); CREATININE FOR GFR 1.36 MG/DL (0.70-1.30); ETHYL ALCOHOL (ETHANOL) < 0.003 % (0.000-0.010); GLOMERULAR FILTRATION RATE > 60.0 (>60); GLUCOSE, FASTING 65 MG/DL (70-100); POTASSIUM SERUM 3.5 MEQ/L (3.5-5.1); SALICYLATE LEVEL < 1.7 MG/DL (5.0-30.0); SODIUM LEVEL 138 MEQ/L (136-145); TOTAL PROTEIN 7.6 GM/DL (6.4-8.2)
[2020-04-14] MEDS ORDERED: KETOROLAC 30 MG/ML 1ML VIAL IV ONE (18:00)
[2020-04-14 18:45] VITALS: BP 141/58
--- OUTSIDE RECORDS SUMMARY | 2020-04-14 19:33 | CCD | Continuity of Care Document ---
Author Author Maciel SENA [place] Organization Unknown Address [address] [place] [address] [place] [address] Phone [phone] Care Team Providers Care Manager Support Name Role Phone Ayo Gregg DPM AUTM [phone] Farhad Wade MD AUTM [phone] Kishor Conrad MD AUTM [phone] Arslan Hackett MD AUTM [phone] [facility] AUTM [phone] [facility] AUTM [phone] [facility] AUTM [phone] [facility] AUTM [phone] Problems Description No Information Available Social History Type Date Description Comments Sex Unknown Smokeless Tobacco Current Smokeless Tobacco User , Uses 4 Times Daily ETOH Use Denies alcohol use Tobacco Use Start: Unknown Patient has never smoked Smoking Status Reviewed: 02/24/20 Patient has never smoked Allergies, Adverse Reactions, Alerts Active Allergies Reaction Severity Comments Date Penicillin Urticaria Moderate 12/17/2016 Sulfa Urticaria Moderate 12/17/2016 Bactrim Urticaria Moderate 12/17/2016 Medications Active Medications SIG Qnty Indications Ordering Provide r Date No Active Medications Unknown History Medications Meclizine HCL 25mg Tablets take one tablet by mouth every 8 hours as needed for dizziness 30tabs Lorenzo Mancia JR., M.D. 10/27/2019 - 10/13/2018 No Active Medications Unknown - 10/27/2019 Medications Administered in Office Medication SIG Qnty Indications Ordering Provider Date Phenergan/Promethazine Hci Injection To 50 MG Injection POLI Edwards 10/02 Immunizations Description No Information Available Vital Signs Date Vital Result Comment 02/24/2020 9:06am BP Systolic 150 mmHg BP Diastolic 80 mmHg Heart Rate 87 /min Respiratory Rate 18 /min O2 % BldC Oximetry 98 % Body Temperature 98.4 F Weight 210.00 lb Height 72 inches 6'0" BMI (Body Mass Index) 28.5 kg/m2 Pain Level 3 10/21/2019 12:06pm BP Systolic 138 mmHg BP Diastolic 85 mmHg Heart Rate 91 /min Respiratory Rate 20 /min O2 % BldC Oximetry 99 % Body Temperature 97.1 F Weight 210.00 lb Height 72 inches 6'0" BMI (Body Mass Index) 28.5 kg/m2 Pain Level 8 Results Test Acquired Date Facility Test Result H/L Range Note CBC With Differential 10/21/2019 [place] [id number] [phone] White Blood Count 15.2 10 High 4.0-10.0 Red Blood Count 5.47 10 Normal 4.30-6.10 Hemoglobin 16.1 g/dL Normal 13.5-17.5 Hematocrit 46.2 % Normal 42.0-52.0 Mean Corpuscular Volume 84.5 fl Normal 80.0-96.0 Mean Corpuscular Hemoglobin 29.4 pg Normal 27.0-33.0 Mean Corpuscular HGB Conc 34.8 g/dL Normal 32.0-36.5 Red Cell Distribution Width 11.9 % Normal 11.5-14.5 Platelet Count, Automated 472 10 High 150-450 Neutrophils % 84.1 % High 36.0-66.0 Lymph % 9.3 % Low 24.0-44.0 [place] % 6.2 % High 0.0-5.0 Eos % 0.0 % Normal 0.0-3.0 Baso % 0.1 % Normal 0.0-1.0 Immature Granulocyte % 0.3 % Normal 0-3.0 Nucleated Red Blood Cell % 0.0 % Normal 0-0 Neutrophils # 12.8 10 High 1.5-8.5 Lymph # 1.4 10 Low 1.5-5.0 [place] # 1.0 10 High 0.0-0.8 Eos # 0.0 10 Normal 0.0-0.5 Baso # 0.0 10 Normal 0.0-0.2 Comprehensive Metabolic Profil 10/21/2019 [facility] [address] [place] [address] [phone] Glucose, Fasting 120 mg/dL High 70-100 Blood Urea Nitrogen 30 mg/dL High 7-18 Creatinine For GFR 1.57 mg/dL High 0.70-1.30 Glomerular Filtration Rate 57.1 Low >60 1 Sodium Level 138 mEq/L Normal 136-145 Potassium Serum 3.8 mEq/L Normal 3.5-5.1 Chloride Level 103 mEq/L Normal 98-107 Carbon Dioxide Level 27 mEq/L Normal 21-32 Anion Gap 8 mEq/L Normal 8-16 Calcium Level 10.9 mg/dL High 8.5-10.1 Ast/Sgot 9 U/L Normal 7-37 Alt/SGPT 33 U/L Normal 12-78 Alkaline Phosphatase 96 U/L Normal 45-117 Bilirubin,Total 0.7 mg/dL Normal 0.2-1.0 Total Protein 8.9 GM/DL High 6.4-8.2 Albumin 5.0 GM/DL Normal 3.2-5.2 Albumin/Globulin Ratio 1.3 Normal Laboratory test finding 10/21/2019 [facility] [address] [place] [address] [phone] Amylase 37 U/L Normal 25-115 2 Lipase 138 U/L Normal 73-393 3 1 Units are mL/min/1.73 m2 Chronic Kidney Disease Staging per NKF: Stage I & II GFR >=60 Normal to Mildly Decreased Stage III GFR 30-59 Moderately Decreased Stage IV GFR 15-29 Severely Decreased Stage V GFR <15 Very Little GFR Left ESRD GFR <15 on MANAGER OF ADMINISTRATION 2 note:<nlbl:demographic_chang ed> 3 note:<nlbl:demographic_chang ed> Procedures Date Code Description Status 10/21/2019 03416 Therapeutic, Prophylactic Or Michelle gnostic Injection Subq/Im Completed Medical Devices Description No Information Available Encounters Type Date Location Provider Dx Diagnosis Office Visit 02/24/2020 8:50a Main Office POLI Edwards J06 .9 Acute upper respiratory infection, unspecified Z20.828 Contact w and exposure to ot h viral communicable diseases Office Visit 10/21/2019 12:45p Main Office POLI Edwards R11 .2 Nausea with vomiting, unspecified R10.84 Generalized abdominal pain Assessments Date Code Description Provider 02/24/2020 J06.9 Acute upper respiratory infectio n, unspecified POLI Edwards 02/24/2020 J06.9 Acute upper respiratory infectio n, unspecified POLI Black 02/24/2020 Z20.828 Contact with and (pascual spected) exposure to other viral communicable diseases POLI Edwards 02/24/2020 Z20.828 Contact with and (pascual spected) exposure to other viral communicable diseases POLI Black 12/25/2019 Z20.828 Contact with and (pascual spected) exposure to other viral communicable diseases POLI Edwards 10/21/2019 R11.2 Nausea with vomiting, unspecifie d POLI Edwards 10/21/2019 R10.84 Generalized abdominal pain Danny POLI Starks Plan of Treatment No Information Available Functional Status Description No Information Available Mental Status Description No Information Available Referrals Refer to Dr Reason for Referral Status Appt Date Farhad Wade JR., MD further assessment of his Ep igastic pain, Acute Gastritis, Acute dehydration, and post [facility] Hospitalization on 10/20-10/23. Closed 11/05/2019 826 [facility] [address] [place] [address] [phone] Kishor Conrad MD further assessment from prev ious hospitalization on 10/20- 10/23, for acute dehydration, decreased urine output/vomiting Closed 11/20/[address] [place] [address] [phone] Arslan Hackett MD further assessment for decre ased urinary output/post hospitalization for acute dehydration. Unable to access [facility] Inpatient/ED/Discharge summary. Closed 11/05/2019 [address] [place] [address] [phone]
--- OUTSIDE RECORDS SUMMARY | 2020-04-14 19:33 | CCD | Continuity of Care Document ---
Author Author Maciel SENA [place] Organization Unknown Address [address] [place] [address] [place] [address] Phone [phone] Care Team Providers Care Youth Officer Name Role Phone Ayo Gregg DPM AUTM [phone] Farhad Wade MD AUTM [phone] Kishor Conrad MD AUTM [phone] Arslan Hackett MD AUTM [phone] [facility] AUTM [phone] [facility] AUTM [phone] [facility] AUTM [phone] [facility] AUTM [phone] Problems Description No Information Available Social History [...] H/L Range Note CBC With Differential 10/21/2019 [place] [id number] [phone] White Blood Count 15.2 10 High 4.0-10.0 [...] 36.0-66.0 Lymph % 9.3 % Low 24.0-44.0 [place] % 6.2 % High 0.0-5.0 Eos % 0.0 % Normal 0.0-3.0 Baso % 0.1 % Normal 0.0-1.0 Immature Granulocyte % 0.3 % Normal 0-3.0 Nucleated Red Blood Cell % 0.0 % Normal 0-0 Neutrophils # 12.8 10 High 1.5-8.5 Lymph # 1.4 10 Low 1.5-5.0 [place] # 1.0 10 High 0.0-0.8 Eos # 0.0 10 Normal 0.0-0.5 Baso # 0.0 10 Normal 0.0-0.2 Comprehensive Metabolic Profil 10/21/2019 [place] [address] [place] [address] [phone] Glucose, Fasting 120 mg/dL High 70-100 Blood [...] Ratio 1.3 Normal Laboratory test finding 10/21/2019 [facility] [address] [place] [address] [phone] Amylase 37 U/L Normal 25-115 2 Lipase 138 U/L Normal 73-393 3 1 Units are mL/min/1.73 m2 Chronic Kidney Disease Staging per NKF: Stage I & II GFR >=60 Normal to Mildly Decreased Stage III GFR 30-59 Moderately Decreased Stage IV GFR 15-29 Severely Decreased Stage V GFR <15 Very Little GFR Left ESRD GFR <15 on EDUCATION FINANCE PROCESSOR 2 note:<nlbl:demographic_chang ed> 3 note:<nlbl:demographic_chang ed> Procedures Date Code Description Status 10/21/2019 02457 Therapeutic, Prophylactic Or Michelle gnostic Injection Subq/Im [...] pain, Acute Gastritis, Acute dehydration, and post [facility] Hospitalization on 10/20-10/23. Closed 11/05/2019 826 [facility] [address] [place] [address] [phone] Kishor Conrad MD further assessment from prev ious hospitalization on 10/20- 10/23, for acute dehydration, decreased urine output/vomiting Closed 11/20/[address] [place] [address] [phone] Arslan Hackett MD further assessment for decre ased urinary output/post hospitalization for acute dehydration. Unable to access [facility] Inpatient/ED/Discharge summary. Closed 11/05/2019 [address] [place] [address] [phone]
--- OUTSIDE RECORDS SUMMARY | 2020-04-14 19:33 | CCD | Continuity of Care Document ---
Author Author Maciel SENA [place] Organization Unknown Address [address] [place] [address] [place] [address] Phone [phone] Care Team Providers Care Cutting Machine Operator Helper Name Role Phone Ayo Gregg DPM AUTM [phone] Farhad Wade MD AUTM [phone] Kishor Conrad MD AUTM [phone] Arslan Hackett MD AUTM [phone] [facility] AUTM [phone] [facility] AUTM [phone] [facility] AUTM [phone] [facility] AUTM [phone] Problems Description No Information Available Social History [...] H/L Range Note CBC With Differential 10/21/2019 [place] [id number] [phone] White Blood Count 15.2 10 High 4.0-10.0 [...] 36.0-66.0 Lymph % 9.3 % Low 24.0-44.0 [place] % 6.2 % High 0.0-5.0 Eos % 0.0 % Normal 0.0-3.0 Baso % 0.1 % Normal 0.0-1.0 Immature Granulocyte % 0.3 % Normal 0-3.0 Nucleated Red Blood Cell % 0.0 % Normal 0-0 Neutrophils # 12.8 10 High 1.5-8.5 Lymph # 1.4 10 Low 1.5-5.0 [place] # 1.0 10 High 0.0-0.8 Eos # 0.0 10 Normal 0.0-0.5 Baso # 0.0 10 Normal 0.0-0.2 Comprehensive Metabolic Profil 10/21/2019 [place] [address] [place] [address] [phone] Glucose, Fasting 120 mg/dL High 70-100 Blood [...] Ratio 1.3 Normal Laboratory test finding 10/21/2019 [facility] [address] [place] [address] [phone] Amylase 37 U/L Normal 25-115 2 Lipase 138 U/L Normal 73-393 3 1 Units are mL/min/1.73 m2 Chronic Kidney Disease Staging per NKF: Stage I & II GFR >=60 Normal to Mildly Decreased Stage III GFR 30-59 Moderately Decreased Stage IV GFR 15-29 Severely Decreased Stage V GFR <15 Very Little GFR Left ESRD GFR <15 on PEANUT SEPARATOR 2 note:<nlbl:demographic_chang ed> 3 note:<nlbl:demographic_chang ed> Procedures Date Code Description Status 10/21/2019 73057 Therapeutic, Prophylactic Or Michelle gnostic Injection Subq/Im [...] abdominal pain Assessments Date Code Description Provider 03/09/2020 Z20.828 Contact with and (pascual spected) exposure to other viral communicable diseases POLI Edwards 02/24/2020 J06.9 Acute upper respiratory [...] POLI Edwards 10/21/2019 R10.84 Generalized abdominal pain POLI Hong Plan of Treatment No Information Available Functional Status Description No Information Available Mental Status Description No Information Available Referrals Refer to Dr Reason for Referral Status Appt Date Farhad Wade JR., MD further assessment of his Ep igastic pain, Acute Gastritis, Acute dehydration, and post [facility] Hospitalization on 10/20-10/23. Closed 11/05/2019 826 [facility] [address] [place] [address] [phone] Kishor Conrad MD further assessment from prev ious hospitalization on 10/20- 10/23, for acute dehydration, decreased urine output/vomiting Closed 11/20/[address] [place] [address] [phone] Arslan Hackett MD further assessment for decre ased urinary output/post hospitalization for acute dehydration. Unable to access [facility] Inpatient/ED/Discharge summary. Closed 11/05/2019 [address] [place] [address] [phone]
--- OUTSIDE RECORDS SUMMARY | 2020-04-14 19:34 | CCD | Continuity of Care Document ---
Author Author Maciel FARIAS Organization Unknown Address [address] [facility] [address] [place] [address] Phone [phone] Care Team Providers Care Hide Selector Name Role Phone Berhane Farias AUTM [phone] Problems Description No Information Available Social History Type Date Description Comments Sex Unknown ETOH Use Denies alcohol use Tobacco Use Start: Unknown End: Unknown Patient is a former smoker 1/2 audrey daily x 1 years Smoking Status Reviewed: 10/29/19 Patient is a former smoker 1/ 2 audrey daily x 1 years Exercise Type/Frequency Exercises regularly Tattoo/Piercing Tattoo Multiple tattoos Seat Belt/Car Seat always uses seat belt Guns in Home No Smoke Alarms Yes Smoke Alarms Carbon Monoxide Detector: Yes Allergies, Adverse Reactions, Alerts Active Allergies Reaction Severity Comments Date Penicillin V hives 10/29/2019 Bactrim hives 10/29/2019 Sulfa hives 10/29/2019 Medications Active Medications SIG Qnty Indications Ordering Provide r Date Buspirone HCL 5mg Tablets take one tablet by mouth tid prn 90tabs POLI Mendez JR 2019 Tamsulosin HCL 0.4mg Capsules 1 daily 1/2 hour after same meal 30caps POLI Mendez JR History Medications Tramadol HCL 50mg Tablets 1 tab every 12 hours as needed for pain 30tabs Belkis Mendez JR 12/02/2019 - 02/17/2020 Ondansetron 4mg Tablets Dispers one odt every 6 hours as needed for nausea 60tabs POLI Chacon JR 10/29/2019 - 02/17/[address] 1 by mouth every morning 30tabs POLI Mendez JR 020 - 12/02/2019 Oxycodone-Acetaminophen 2.5-325mg Tablets Take one tablet by mouth as needed bid; MDD=2 14tabs Ro betty POLI Castañeda JR 10/29/2019 - 12/02/2019 Immunizations Description No Information Available Vital Signs Date Vital Result Comment 02/17/2020 8:29am BP Systolic 110 mmHg BP Diastolic 60 mmHg Heart Rate 61 /min Height 72 inches 6'0" Weight 202.00 lb BMI (Body Mass Index) 27.4 kg/m2 12/02/2019 10:41am BP Systolic 120 mmHg BP Diastolic 80 mmHg Height 72 inches 6'0" Weight 208.00 lb BMI (Body Mass Index) 28.2 kg/m2 Results Test Acquired Date Facility Test Result H/L Range Note Complete Blood Count 10/29/2019 [place] [facility] [employer] [place] [employer] Ironworker: [place] [address] [phone] WBC 11.8 x10*3/UL High 4.1 - 10.9 1 RBC 4.88 x10*6/UL 4.20 - 6.30 Hemoglobin 14.0 g/dL 12.0 - 18.0 Hematocrit 40.0 % 37.0 - 51.0 MCV 81.9 fL 80.0 - 97.0 MCH 28.7 pg 26.0 - 32.0 MCHC 35.0 g/dL 31.0 - 38.0 RDW 12.8 % 11.6 - 13.7 PLT 443 x10*3/UL High 140 - 440 MPV 8.6 FL 7.8 - 11.0 Lymph % 30.1 % 10.0 - 58.5 Mid % 7.4 % 1.7 - 9.3 Neut % 62.5 % 37.0 - 92.0 Lymph # 3.5 x10*3/UL 0.6 - 4.1 Mid # 1.0 x10*3/UL High 0.1 - 0.6 Neut # 7.3 x10*3/UL 2.0 - 7.8 Comprehensive Chem Profile 10/29/2019 [place] [facility] [place] Field Ironworker: [place] [address] [phone] Glucose 95 mg/dL 74 - 99 2 BUN 16 mg/dL 7 - 18 Creatinine 1.3 mg/dL 0.6 - 1.3 Sodium 149 mEq/L High 136 - 145 3 Potassium 4.0 mEq/L 3.5 - 5.1 Chloride 111 mEq/L High 98 - 107 Carbon Dioxide 26 mEq/L 21 - 32 Calcium 9.2 mg/dL 8.5 - 10.1 Alk. Phosphatase 71 mg/dL 46 - 116 Total Bilirubin 0.4 mg/dL 0.2 - 1.0 Ast (Sgot) 5 U/L Low 15 - 37 Alt (SGPT) 22 U/L 12 - 78 Albumin 4.1 g/dL 3.4 - 5.0 Total Protein 7.2 g/dL 6.4 - 8.2 A/G Ratio 1.32 CALC 1.00 - 1.90 GFR >= 60 mL/min >60 GFR >= 60 mL/min >60 4 Lipid Profile 10/29/2019 [place] [facility] Ironworker: [place] [address] [phone] Cholesterol 129 mg/dL Low 131 - 200 Triglycerides 93 mg/dL 30 - 150 HDL Cholesterol 31 mg/dL Low 35 - 60 LDL (Calculated) 79 CALC 50 - 159 Laboratory test finding 10/29/2019 [place] [facility] Ironworker: [place] [address] [phone] Thyroid Stimulating Hormone 3.18 uIU/mL 0.3 6 - 3.74 1 NOTE: RESULT VERIFIED. 2 100-125 mg/dL PRE-DIABET ES/FASTING >126 mg/dL DIABETES/FASTING 3 NOTE: LYTES AND AST VERIFIED 4 CHRONIC KIDNEY DISEASE STAGI NG PER NKF STAGE I & II GFR >= 60 NORMAL TO MILDLY DECREASED STAGE III GFR 30-59 MODERATELY DECREASED STAGE IV GFR 15-29 SEVERELY DECREASED STAGE V GFR <15 VERY LITTLE GFR LEFT ESRD GFR <15 ON REWRITER Procedures Date Code Description Status 10/29/2019 78849 EKG/Interpretation & Report Comp leted Medical Devices Description No Information Available Encounters Type Date Location Provider Dx Diagnosis Office Visit 02/17/2020 8:20a [facility] F41.9 Anxiety disorder, unspecifie d Office Visit 12/02/2019 10:40a [facility] POLI Machado JR R11.0 Nausea M54.5 Low back pain Office Visit 10/29/2019 8:00a [facility] N17.9 Acute kidney failure, unspec ified K21.9 Gastro-esophageal reflux dis ease without esophagitis K76.0 Fatty (change of) liver, not elsewhere classified E78.5 Hyperlipidemia, unspecified Assessments Date Code Description Provider 02/17/2020 F41.9 Anxiety disorder, unspecified Ro POLI Richey JR 12/02/2019 R11.0 Nausea POLI Fields JR 12/02/2019 M54.5 Low back pain POLI Fields JR 10/29/2019 N17.9 Acute kidney failure, unspecifie d POLI Mendez JR 10/29/2019 K21.9 Gastro-esophageal reflux disease without esophagitis POLI Mendez JR 10/29/2019 K76.0 Fatty (change of) liver, not els ewhere classified POLI Mendez JR 10/29/2019 E78.5 Hyperlipidemia, unspecified RobPOLI Rivera JR Plan of Treatment Future Appointment(s):* 05/02/2020 8:00 am - POLI Mendez JR at [facility] 02/17/2020 - POLI Mendez JR* F41.9 Anxiety disorder, unspecified* Comments:* Will do trial of Buspar PRN, consider psych eval in future, excuse slip given. He is agreeable and understands the risks of this medication, he verbalizes understanding, will phone in 1 month to let me know how he is doing * All * New Medication:* Buspirone HCL 5 mg - take one tablet by mouth tid prn Functional Status Description No Information Available Mental Status Description No Information Available Referrals Refer to Reason for Referral Status Appt Date Arslan Hackett M.D. CONSULT FOR HOSP F/U OF ACUTE KIDNEY INJUR Y [facility] [address] , [facility] [place] [address] [phone]
--- OUTSIDE RECORDS SUMMARY | 2020-04-14 19:34 | CCD ---
Continuity of Care Document (CCD) Created on: 02/24/2020 Maciel Sorenson External Reference #: [id number] : [id number] Sex: Male Author Author Maciel SENA Organization Unknown Address [address] [place] [address] [place] [address] Phone [phone] Care Team Providers [employer] Name Role Phone Ayo Gregg DPM AUTM [phone] Farhad Wade MD AUTM [phone] Kishor Conrad MD AUTM [phone] Arslan Hackett MD AUTM [phone] [facility] General AUTM [phone] [facility] Urology AUTM [phone] [facility] AUTM [phone] Problems Description No Information Available Social History [...] H/L Range Note CBC With Differential 10/21/[address] [address] [phone] White Blood Count 15.2 10 High 4.0-10.0 [...] 36.0-66.0 Lymph % 9.3 % Low 24.0-44.0 [place] % 6.2 % High 0.0-5.0 Eos % 0.0 % Normal 0.0-3.0 Baso % 0.1 % Normal 0.0-1.0 Immature Granulocyte % 0.3 % Normal 0-3.0 Nucleated Red Blood Cell % 0.0 % Normal 0-0 Neutrophils # 12.8 10 High 1.5-8.5 Lymph # 1.4 10 Low 1.5-5.0 [place] # 1.0 10 High 0.0-0.8 Eos # 0.0 10 Normal 0.0-0.5 Baso # 0.0 10 Normal 0.0-0.2 Comprehensive Metabolic Profil 10/21/2019 [facility] [address] [place] [address] [phone] Glucose, Fasting 120 mg/dL High 70-100 Blood [...] Ratio 1.3 Normal Laboratory test finding 10/21/2019 [facility] [address] [place] [address] [phone] Amylase 37 U/L Normal 25-115 2 Lipase 138 U/L Normal 73-393 3 1 Units are mL/min/1.73 m2 Chronic Kidney Disease Staging per NKF: Stage I & II GFR >=60 Normal to Mildly Decreased Stage III GFR 30-59 Moderately Decreased Stage IV GFR 15-29 Severely Decreased Stage V GFR <15 Very Little GFR Left ESRD GFR <15 on FEATURE WRITER 2 note:<nlbl:demographic_chang ed> 3 note:<nlbl:demographic_chang ed> Procedures Date Code Description Status 10/21/2019 87201 Therapeutic, Prophylactic Or Michelle gnostic Injection Subq/Im Completed Medical Devices Description No Information Available Encounters Type Date Location Provider Dx Diagnosis Office Visit 10/21/2019 12:45p Main Office POLI [...] abdominal pain POLI Hong Plan of Treatment 02/24/2020 - POLI Black* J06.9 Acute upper respiratory infection, unspecified* Comments:* supportive: vit c, rest, fluids, steam, gargles if sore throat, RTC or seek other medical attention if worsening or just not better within 1 week * Z20.828 Contact with and (suspected) exposure to other viral communicable diseases* Comments:* POC rapid COVID neg today * All * New Medication:* No Active Medications - Functional Status Description No Information Available Mental Status Description No Information Available Referrals Refer to Reason for Referral Status Appt Date Farhad Wade JR., MD further assessment of his Ep igastic pain, Acute Gastritis, Acute dehydration, and post [facility] Hospitalization on 10/20-10/23. Closed 11/05/2019 [address] [facility] [address] [place] [address] [phone] Kishor Conrad MD further assessment from prev ious hospitalization on 10/20- 10/23, for acute dehydration, decreased urine output/vomiting Closed 11/20/2019 [address] [place] [address] [phone] Arslan Hackett MD further assessment for decre ased urinary output/post hospitalization for acute dehydration. Unable to access [facility] Inpatient/ED/Discharge summary. Closed 11/05/2019 [address] [place] [address] [phone]
--- OUTSIDE RECORDS SUMMARY | 2020-04-14 19:34 | CCD ---
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 Operator Name Role Phone Belinda RON DPM Unavailable Unavailable Belinda RON DPM Unavailable Unavailable Belinda RON DPM Unavailable Unavailable Belinda RON DPM Unavailable Unavailable Belinda RON DPM Unavailable Unavailable Belinda RON DPM Unavailable Unavailable Belinda RON DPM Unavailable Unavailable Belinda RON DPM Unavailable Unavailable Belinda RON DPM Unavailable Unavailable Belinda RON DPM Unavailable Unavailable Belinda RON DPM Unavailable Unavailable Belinda RON DPM Unavailable Unavailable Belinda RON DPM Unavailable Unavailable Belinda RON DPM Unavailable Unavailable Belinda RON DPM Unavailable Unavailable Belinda RON DPM Unavailable Unavailable Belinda RON DPM Unavailable Unavailable Belinda RON DPM Unavailable Unavailable Belinda RON DPM Unavailable Unavailable Belinda RON DPM Unavailable Unavailable Belinda RON DPM Unavailable Unavailable Belinda RON DPM Unavailable Unavailable Belinda RON DPM Unavailable Unavailable Belinda RON DPM Unavailable Unavailable Belinda RON DPM Unavailable Unavailable MAJAK, R GASTON DPM Unavailable Unavailable MAJAK, R GASTON DPM Unavailable Unavailable MAJAK, R GASTON DPM Unavailable Unavailable MAJAK, R GASTON DPM Unavailable Unavailable MAJAK, R GASTON DPM Unavailable Unavailable PICKERAL JR, J KISHAN PA-C Unavailable Unavailable PICKERAL JR, J KISHAN PA-C Unavailable Unavailable PICKERAL JR, J KISHAN PA-C Unavailable Unavailable PICKERAL JR, J KISHAN PA-C Unavailable Unavailable PICKERAL JR, J KISHAN PA-C Unavailable Unavailable PICKERAL JR, J KISHAN PA-C Unavailable Unavailable PICKERAL JR, J KISHAN PA-C Unavailable Unavailable PICKERAL JR, J KISHAN PA-C Unavailable Unavailable PICKERAL JR, J KISHAN PA-C Unavailable Unavailable PICKERAL JR, J KISHAN PA-C Unavailable Unavailable PICKERAL JR, J KISHAN PA-C Unavailable Unavailable PICKERAL JR, J KISHAN PA-C Unavailable Unavailable PICKERAL JR, J KISHAN PA-C Unavailable Unavailable PICKERAL JR, J KISHAN PA-C Unavailable Unavailable PICKERAL JR, J KISHAN PA-C Unavailable Unavailable PICKERAL JR, J KISHAN PA-C Unavailable Unavailable PICKERAL JR, J KISHAN PA-C Unavailable Unavailable PICKERAL JR, J KISHAN PA-C Unavailable Unavailable PICKERAL JR, J KISHAN PA-C Unavailable Unavailable PICKERAL JR, J KISHAN PA-C Unavailable Unavailable PICKERAL JR, J KISHAN PA-C Unavailable Unavailable ZEGIL D JEWEL BUILDING CODE INSPECTOR Unavailable Unavailable ZEGIL D JEWEL BUILDING CODE INSPECTOR Unavailable Unavailable ZEGIL D JEWEL BUILDING CODE INSPECTOR Unavailable Unavailable LETTIERE, A THOR PA Unavailable Unavailable LETTIERE, A THOR PA Unavailable Unavailable LETTIERE, A THOR PA Unavailable Unavailable LETTIERE, A THOR PA Unavailable Unavailable LETTIERE, A THOR PA Unavailable Unavailable LETTIERE, A THOR PA Unavailable Unavailable LETTIERE, A THOR PA Unavailable Unavailable LETTIERE, A THOR PA Unavailable Unavailable LETTIERE, A THOR PA Unavailable Unavailable LETTIERE, A THOR PA Unavailable Unavailable LETTIERE, A THOR PA Unavailable Unavailable LETTIERE, A THOR PA Unavailable Unavailable LETTIERE, A THOR PA Unavailable Unavailable LETTIERE, A THOR PA Unavailable Unavailable LETTIERE, A THOR PA Unavailable Unavailable LETTIERE, A THOR PA Unavailable Unavailable LETTIERE, A THOR PA Unavailable Unavailable LETTIERE, A THOR PA Unavailable Unavailable LETTIERE, A THOR PA Unavailable Unavailable LETTIERE, A THOR PA Unavailable Unavailable LETTIERE, A THOR PA Unavailable Unavailable LETTIERE, A THOR PA Unavailable Unavailable LETTIERE, A THOR PA Unavailable Unavailable LETTIERE, A THOR PA Unavailable Unavailable LETTIERE, A THOR PA Unavailable Unavailable LETTIERE, A THOR PA Unavailable Unavailable LETTIERE, A THOR PA Unavailable Unavailable LETTIERE, A THOR PA Unavailable Unavailable LETTIERE, A THOR PA Unavailable Unavailable Re-disclosure Warning The records that you are about to access may contain information from federally-assisted alcohol or drug abuse programs. If such information is present, then the following federally mandated warning applies: This information has been disclosed to you from records protected by federal confidentiality rules (42 CFR part 2). The federal rules prohibit you from making any further disclosure of this information unless further disclosure is expressly permitted by the written consent of the person to whom it pertains or as otherwise permitted by 42 CFR part 2. A general authorization for the release of medical or other information is NOT sufficient for this purpose. The Federal rules restrict any use of the information to criminally investigate or prosecute any alcohol or drug abuse patient.The records that you are about to access may contain highly sensitive health information, the redisclosure of which is protected by Article 27-F of the [facility] Public Health law. If you continue you may have access to information: Regarding HIV / AIDS; Provided by facilities licensed or operated by the [facility] Office of Mental Health; or Provided by the [facility] Office for People With Developmental Disabilities. If such information is present, then the following [facility] mandated warning applies: This information has been disclosed to you from confidential records which are protected by state law. State law prohibits you from making any further disclosure of this information without the specific written consent of the person to whom it pertains, or as otherwise permitted by law. Any unauthorized further disclosure in violation of state law may result in a fine or fdc sentence or both. A general authorization for the release of medical or other information is NOT sufficient authorization for further disc losure. Allergies and Adverse Reactions Type Description Substance Reaction Status Data Source(s ) Drug allergy Drug allergy baclofen [facility] Drug allergy Drug allergy Sulfa (Sulfonamide Antibiotics) [facility] Drug allergy Drug allergy Penicillins [facility] Family History Family Member Name Family Member Gender Family Member Status Date o f Status Description Data Source(s) Unknown Unknown Problem [facility] ([facility]) maternal grandmother/mother Encounters Encounter Providers Location Date Indications Data Source(s ) Emergency Attender: JEWEL [facility]ED[facility]ARAM [facility] ED-ED 03/2020 01:58:00 PM EST - 03/04/2020 05:04:00 PM EST SEEKING HELP W/DRUG USE [facility] SEEKING HELP W/DRUG USE Outpatient Attender: THOR Madison roseanna 02/24/2020 07:50:00 AM EST [facility] ([facility]) Outpatient Attender: KISHAN Adams 1 04/19/2019 07:20:00 AM EST [facility] ([facility] ) Outpatient Attender: KISHAN Adams 0 12/02/2019 10:40:00 AM EDT [facility] ([facility] ) Outpatient Attender: KISHAN Adams 0 10/29/2019 08:00:00 AM EDT [facility] ([facility] ) Outpatient Attender: THOR kenyony 10/21/2019 12:45:00 PM EDT [facility] ([facility]) Outpatient Attender: GASTON RON [facility] [place] 06/04 10:45:00 AM EDT [facility] ([facility] Outpatient Attender: THOR kenyony 06/07/2019 03:35:00 PM EDT [facility] ([facility]) Medications Medication Brand Name Start Date Product Form Dose Route Admi nistrative Instructions Pharmacy Instructions Status Indications Reaction Description Data Source(s) Clonidine Hydrochloride 0.1 MG Oral Tablet CLONIDINE HCL 03/31/2020 12:00:00 AM EST tablet 60 TAKE ONE TABLET BY MOUTH TWICE A DAY NEEDED DO NOT TAKE IF LIGHTHEADED OR IF BLOOD PRESSURES RUNNING LOWER THAN NORMAL MAXIMUM DAILY DOSE = 2 TAKE ONE TABLET BY MOUTH TWICE A DAY NEEDED DO NOT TAKE IF LIGHTHEADED OR IF BLOOD PRESSURES RUNNING LOWER THAN NORMAL MAXIMUM DAILY DOSE = 2 SOLD: 04/13/2020 [facility] No Active Medications 02/24/2020 12:00:00 AM EST active [facility] ([facility]) buspirone hydrochloride 5 MG Oral Tablet Buspirone HCL 02/17/2020 12:00:00 AM EST ORAL active [facility] ([facility]) 4 mg 12/03/2019 12:00:00 AM EDT tablet,disintegrating 6 0 DISSOLVE ONE TABLET ON TONGUE EVERY 6 HOURS NEEDED FOR NAUSEA DISSOLVE ONE TABLET ON TONGUE EVERY 6 HOURS NEEDED FOR NAUSEA SOLD: 12/04/2019 [facility] 50 mg 12/03/2019 12:00:00 AM EDT tablet 30 TAKE ONE TABLET BY MOUTH EVERY 12 HOURS NEEDED PAIN MAXIMUM DAILY DOSE = 2 TAKE ONE TABLET BY MOUTH EVERY 12 HOURS NEEDED PAIN MAXIMUM DAILY DOSE = 2 SOLD: 12/04/2019 [facility] tramadol hydrochloride 50 MG Oral Tablet Tramadol HCL 12/02/2019 12:00:00 AM EDT completed [facility] ([facility]) Ondansetron 4 MG Disintegrating Oral Tablet Ondansetron 10/29/2019 12:00:00 AM EDT completed [facility] ([facility]) 4 mg 10/29/2019 12:00:00 AM EDT tablet,disintegrating 3 0 DISSOLVE ONE TABLET ON TONGUE EVERY 6 HOURS NEEDED FOR NAUSEA DISSOLVE ONE TABLET ON TONGUE EVERY 6 HOURS NEEDED FOR NAUSEA SOLD: 10/29/2019 [facility] pantoprazole 40 MG Delayed Release Oral Tablet [Protonix] Pr otonix 10/29/2019 12:00:00 AM EDT ORAL completed [facility] ([facility]) Tamsulosin hydrochloride 0.4 MG Oral Capsule Tamsulosin HCL 10/29/2019 12:00:00 AM EDT active [facility] ([facility]) Acetaminophen 325 MG / Oxycodone Hydrochloride 2.5 MG Oral Tablet Oxycodone-Acetaminophen 10/29/2019 12:00:00 AM EDT ORAL completed [facility] ([facility]) 2.5-325 mg 10/29/2019 12:00:00 AM EDT tablet 14 TAKE ONE TABLET BY MOUTH TWICE A DAY NEEDED MAXIMUM DAILY DOSE = 2 TAKE ONE TABLET BY MOUTH TWICE A DAY NEEDED MAXIMUM DAILY DOSE = 2 SOLD: 10/29/2019 [facility] Meclizine Hydrochloride 25 MG Oral Tablet Meclizine HCL 10/27/2019 12:00:00 AM EDT ORAL completed [facility] ([facility]) Meclizine Hydrochloride 25 MG Oral Tablet MECLIZINE HCL 10/27/2019 12:00:00 AM EDT tablet 30 TAKE ONE TABLET BY MOUTH DAVID RY 8 HOURS NEEDED FOR DIZZINESS TAKE ONE TABLET BY MOUTH EVERY 8 HOURS NEEDED FOR DIZZINESS SOLD: 10/27/2019 [facility] Acetaminophen 325 MG / tramadol hydrochloride 37.5 MG Oral Tablet 37.5-325 mg TRAMADOL HCL/ACETAMINOPHEN 10/24/2019 12:00:00 AM EDT tablet 10 TAKE ONE TABLET BY MOUTH EVERY 6 HOURS NEEDED FOR PAIN MAXIMUM DAILY DOSE = 4 TAKE ONE TABLET BY MOUTH EVERY 6 HOURS NEEDED FOR PAIN MAXIMUM DAILY DOSE = 4 SOLD: 10/24/2019 [facility] pantoprazole 40 MG Delayed Release Oral Tablet PANTOPRAZOLE SODIUM 10/24/2019 12:00:00 AM EDT tablet,delayed release (DR/EC) 30 T MARCELLUS ONE TABLET BY MOUTH EVERY DAY TAKE ONE TABLET BY MOUTH EVERY DAY SOLD: 10/24/2019 [facility] 4 mg 10/24/2019 12:00:00 AM EDT tablet 5 TAKE ONE TABLET BY MOUTH EVERY 6 TO 8 HOURS NEEDED FOR NAUSEA VOMITING TAKE ONE TABLET BY MOUTH EVERY 6 TO 8 HOURS NEEDED FOR NAUSEA VOMITING SOLD: 10/24/2019 [facility] 0.4 mg 10/24/2019 12:00:00 AM EDT capsule 7 TAKE ONE CAPSULE BY MOUTH EVERY DAY TAKE ONE CAPSULE BY MOUTH EVERY DAY SOLD: 10/24/2019 [facility] No Active Medications 10/21/2019 12:00:00 AM EDT completed [facility] ([facility]) Phenergan/Promethazine Hci Injection To 50 MG 10/21/2019 1 2:00:00 AM EDT completed [facility] ([facility]) Medication administered onsite 3.5-10,000-1 mg/mL-unit/mL-% 07/02/2019 12:00:00 AM EDT solu tion 10 APPLY 1 DROP TO BASE OF NAIL AFTER BEDTADINE SOAKS DIRECTED APPLY 1 DROP TO BASE OF NAIL AFTER BEDTADINE SOAKS DIRECTED SOLD: 07/02/2019 [facility] Hydrocortisone 10 MG/ML / Neomycin 3.5 M G/ML / Polymyxin B 49513 UNT/ML Otic Solution Judpeqqt-Zfjoretas-GL 07/02/2019 12:00:00 AM EDT active [facility] ([facility] 100 mg 06/08/2019 12:00:00 AM EDT capsule 20 TAKE ONE CAPSULE BY MOUTH TWICE A DAY FOR 10 DAYS TAKE ONE CAPSULE BY MOUTH TWICE A DAY FOR 10 DAYS SOLD : 06/17/2019 [facility] No Active Medications 06/07/2019 12:00:00 AM EDT completed [facility] ([facility]) Doxycycline Monohydrate 100 MG Oral Tablet Doxycycline Monoh ydrate 06/07/2019 12:00:00 AM EDT ORAL completed [facility] ([facility]) 20 mg 05/26/2019 12:00:00 AM EDT tablet 20 TAKE THREE TABLETS BY MOUTH EVERY DAY DAYS 1-3 , THEN TAKE TWO TABLETS BY MOUTH EVERY DAY DAYS 4-7 , THEN TAKE ONE TABLET BY MOUTH EVERY DAY DAYS 8-10 TAKE THREE TABLETS BY MOUTH EVERY DAY DAYS 1-3 , THEN TAKE TWO TABLETS BY MOUTH EVERY DAY DAYS 4-7 , THEN TAKE ONE TABLET BY MOUTH EVERY DAY DAYS 8-10 SOLD: 06/17/2019 [facility] Insurance Providers Payer name Policy type / Coverage type Policy ID Covered democrat ID Covered democrat's relationship to bautista Policy Bautista Plan Information [facility] [id number] SP [id number] BCBS EMPIRE [place] DIV [id number] SP [id number] [place] [id number] S [id number] BCBS EMPIRE [place] DIV [id number] SP [id number] STATE INSURANCE FUND [id number] SP [id number] [facility] [id number] SP [id number] [facility](MCAID) O [id number] S [id number] BCBS EMPIRE TIRSO DIV [id number] SP [id number] [facility] Commercial [id number] Self [id number] AETNA [id number] SP [id number] Aetna Ppo/Pos/Nap/MC Commercial [id number] Self [id number] [facility] COMMUNITY PLAN MEDICAID [id number] 0 [id number] PENDING SALE TO [facility] COMMUNITY PLAN [id number] [id number] SP [id number] [employer]UE [employer] PLAN [id number] SP [id number] O BLUE [id number] SP [id number] Problems, Conditions, and Diagnoses Code Display Name Description Problem Type Effective Dates Data Source(s) F11.20 Opioid dependence, uncomplicated OPIOID DEPENDEN CE, UNCOMPLICATED Diagnosis 03/04/2020 01:58:00 PM [facility] Surgeries/Procedures Procedure Description Date Indications Data Source(s) ECG ROUTINE ECG W/LEAST 12 LDS TRCG ONLY W/O I&R ELECTROCARD IOGRAM TRACING 03/04/2020 12:00:00 AM [facility] 43786 SARS-COV-2 COVID-19 AMP PRB 03/04/2020 12:00:00 AM [facility] URNLS DIP STICK/TABLET RGNT AUTO W/O MICROSCOPY URINALYSIS A UTO W/O SCOPE 03/04/2020 12:00:00 AM [facility] COLLECTION VENOUS BLOOD VENIPUNCTURE ROUTINE VENIPUNCTURE 12:00:00 AM [facility] BLOOD COUNT COMPLETE AUTO&AUTO DIFRNTL WBC COUNT COMPLETE CB C W/AUTO DIFF WBC 03/04/2020 12:00:00 AM [facility] 32946 DRUG SCREEN QUANTALCOHOLS 03/04/2020 12:00:00 AM [facility] 47189 DRUG TEST PRSMV DIR OPT OBS 03/04/2020 12:00:00 AM [facility] MAGNESIUM ASSAY OF MAGNESIUM 03/04/2020 12:00:00 AM [facility] 27586 ANALGESICS NON-OPIOID 1 OR 2 03/04/2020 12:00:00 AM [facility] TROPONIN QUANTITATIVE ASSAY OF TROPONIN QUANT 03/04/2020 12:00:00 A M [facility] COMPREHENSIVE METABOLIC PANEL COMPREHEN METABOLIC PANEL 03/2020 12:00:00 AM [facility] EMERGENCY DEPARTMENT VISIT HIGH/URGENT SEVERITY EMERGENCY DE PT VISIT 03/04/2020 12:00:00 AM EST [facility] ECG ROUTINE ECG W/LEAST 12 LDS W/I&R 10/29/2019 12:00: 00 AM EDT [facility] ([facility]) Therapeutic, Prophylactic Or Diagnostic Injection Subq/Im 10/21/2019 12:00:00 AM EDT [facility] ([facility]) EXCISION NAIL MATRIX PERMANENT REMOVAL 07/02/2019 12:0 0:00 AM EDT [facility] EXCISION NAIL MATRIX PERMANENT REMOVAL 07/02/2019 12:0 0:00 AM EDT [facility] ([facility] Results ID Date Data Source [id number] 03/23/2020 10:34:19 PM EST [facility] Name Value Range Interpretation Code Description Data Olive rce(s) Supporting Document(s) FREE THYROXINE @ 0.88 ng/dL (0.76-1.46) Laboratory [facility] ID Date Data Source [id number] 03/23/2020 10:34:19 PM EST [facility] Name Value Range Interpretation Code Description Data Olive rce(s) Supporting Document(s) TSH,ULTRASENSITIVE @ 0.938 mIU/L (0.360-4.170) Laboratory [facility] ID Date Data Source [id number] 03/09/2020 12:00:00 AM EST [facility] Name Value Range Interpretation Code Description Data Olive rce(s) Supporting Document(s) SARS coronavirus 2 Ag Negative [facility] This lab was ordered by [facility] ID Date Data Source [id number] 12/25/2019 12:00:00 AM EDT [facility] Name Value Range Interpretation Code Description Data Olive rce(s) Supporting Document(s) SARS coronavirus 2 Ag [facility] This lab was ordered by [facility] and [facility] ID Date Data Source [id number] 03/07/2020 10:17:00 AM EST [facility] Name Value Range Interpretation Code Description Data Olive rce(s) Supporting Document(s) Respiratory specimen severe acute respir atory syndrome coronavirus 2 (SARS-CoV-2) RNA [facility] and reported by . ID Date Data Source [id number] 03/04/2020 04:27:00 PM [facility] Name Value Range Interpretation Code Description Data Olive rce(s) Supporting Document(s) UDS Benzodiazepines Screen Negative Normal (applies to n on-numeric results) [facility] UDS Cocaine Screen Negative Normal (applies to non-numer ic results) [facility] UDS Ampetamine Screen Negative Normal (applies to non-nu meric results) [facility] UDS Cannabinoids Screen Negative [facility] UDS Opiates Screen Negative [facility] UDS Barbiturates Screen Negative Normal (applies to non- numeric results) [facility] ID Date Data Source [id number] 03/04/2020 04:26:00 PM [facility] Collected By: Nurse Initials: al Time Collected: 1556 Name Value Range Interpretation Code Description Data Olive rce(s) Supporting Document(s) Color,Urine Colorl-Dk Y Normal (applies to non-numeric res ults) [facility] Clarity,Urine Clear Normal (applies to non-numeric re sults) [facility] Specific [place],Urine 1.005-1.030 Normal (applies to non- numeric results) [facility] pH,Urine 5.0-8.0 Normal (applies to non-numeric resul ts) [facility] Protein,Urine Negative Normal (applies to non-numeric re sults) [facility] Glucose,Urine Negative Normal (applies to non-numeric re sults) [facility] Ketones,Urine Negative Normal (applies to non-numeric re sults) [facility] Blood,Urine Negative Normal (applies to non-numeric resu lts) [facility] Bilirubin,Urine Negative Normal (applies to non-numeric results) [facility] Urobilinogen,Urine 0.2-1.0 Normal (applies to non-numer ic results) [facility] Leukocyte Esterase,Urine Negative Normal (applies to non -numeric results) [facility] Nitrite,Urine Negative Normal (applies to non-numeric re sults) [facility] ID Date Data Source [id number] 03/04/2020 03:22:00 PM EST [facility] First test? YESEmployed in healthcare? NOSymptomatic per CDC? NOHospitalized? NOICU? NOResident in congregated care? ex fci, [facility] NO? NO Name Value Range Interpretation Code Description Data Olive rce(s) Supporting Document(s) SARS-CoV-2 RNA Negative Normal (applies to non-numeric r esults) [facility] Negative results should be treated as pr esumptive and, if inconsistent with clinical signs and symptoms or necessary for patient management, should be tested with different authorized or cleared molecular tests. Negative results do not preclude SARS-CoV-2 infection and should not be used as the sole basis for patient management decisions. Negative results should be considered in the context of a patient???s recent exposures, history and the presence of clinical signs and symptoms consistent with COVID-19. This test has not been FDA cleared or approved; this test has been authorized by FDA under an Emergency Use Authorization for use by laboratories certified under the Clinical Laboratory Improvement Amendments of 1988 (CLIA), 42 U.S.C. ???263a, to perform moderate complexity/high complexity tests and at the Point of Care (POC), i.e., in patient care settings operating under a CLIA Certificate of Waiver, Certificate of Compliance, or Certificate of Accreditation. Factsheets for healthcare providers: https://www.fda.gov/media/278200/download Factsheets for patients: https://www.fda.gov/media/902338/download The ID NOW Instrument is a rapid molecular in vitro diagnostic test utilizing an isothermal nucleic acid amplification technology intended for the qualitative detection of nucleic acid from the SARS-CoV-2 viral RNA. THIS IS A STATE REPORTABLE COMMUNICABLE DISEASE. Manual entry verified by David Garnica 03/04/20 1522 ID Date Data Source [id number] 03/04/2020 03:26:00 PM EST [facility] Name Value Range Interpretation Code Description Data Olive rce(s) Supporting Document(s) Troponin I 0.000-0.056 Normal (applies to non-numeric resu lts) [facility] ID Date Data Source [id number] 03/04/2020 03:26:00 PM EST [facility] Name Value Range Interpretation Code Description Data Olive rce(s) Supporting Document(s) Acetaminophen 10.0-30.0 Below low normal [facility] ID Date Data Source [id number] 03/04/2020 03:26:00 PM [facility] Name Value Range Interpretation Code Description Data Olive rce(s) Supporting Document(s) Magnesium 1.8-2.4 Normal (applies to non-numeric resul ts) [facility] ID Date Data Source [id number] 03/04/2020 03:26:00 PM EST [facility] Name Value Range Interpretation Code Description Data Olive rce(s) Supporting Document(s) Sodium 140 mmol/L 136-145 Normal (applies to non-numeric resul ts) [facility] Potassium 3.5-5.1 Normal (applies to non-numeric resul ts) [facility] Chloride 102 mmol/L 98-107 Normal (applies to non-numeric resul ts) [facility] Carbon Dioxide CO2 21-32 Normal (applies to non-numer ic results) [facility] Anion Gap 5.0-16.0 Normal (applies to non-numeric resul ts) [facility] BUN 13 mg/dL 7-18 Normal (applies to non-numeric results) [facility] Creatinine,Serum 0.8-1.5 Normal (applies to non-numeric results) [facility] GFR >60 Normal (applies to non-numeric results) [facility] Glucose Level 140 mg/dL 60-99 Above high normal [facility] Reference range is only applicable when patient is fasting Note the following drug interference: Sulfasalazine Sulfapyridine Can see falsely depressed Can see falsely elevated result with up to 17% results with up to 11% decrease in measurement increase in measurement Recommend patients be collected for this test prior to administration of either drug. Calcium 8.5-10.1 Normal (applies to non-numeric resul ts) [facility] Bilirubin,Total 0.1-1.9 Normal (applies to non-numeric results) [facility] SGOT(AST) 11 U/L 15-37 Below low normal [facility] Note the following drug interference: Sulfasalazine Sulfapyridine Can see falsely depressed Can see falsely elevated result with up to 10% results with up to 10% decrease in measurement increase in measurement Recommend patients be collected for this test prior to administration of either drug. SGPT(ALT) 33 U/L 12-78 Normal (applies to non-numeric resul ts) [facility] Note the following drug interference: Sulfasalazine Sulfapyridine Can see falsely depressed Can see falsely elevated result with up to 29% results with up to 10% decrease in measurement increase in measurement Recommend patients be collected for this test prior to administration of either drug. Alkaline Phosphatase 85 U/L 38-126 Normal (applies to non-num emili results) [facility] can increase Alkaline Phosp le vels up to 2 times the normal adult value. Normal values for children and adolescents are 2 to 3 times the normal adult value. Total Protein 6.0-8.2 Normal (applies to non-numeric re sults) [facility] Albumin Level 3.4-5.0 Normal (applies to non-numeric re sults) [facility] ID Date Data Source [id number] 03/04/2020 03:26:00 PM [facility] Name Value Range Interpretation Code Description Data Olive rce(s) Supporting Document(s) Salicylate 2.8-20.0 Below low normal [facility] ID Date Data Source [id number] 03/04/2020 03:26:00 PM [facility] Name Value Range Interpretation Code Description Data Olive rce(s) Supporting Document(s) Ethanol Less than 10.0 Normal (applies to non-numeric r esults) [facility] ID Date Data Source [id number] 03/04/2020 03:09:00 PM EST [facility] Name Value Range Interpretation Code Description Data Olive rce(s) Supporting Document(s) White Blood Count 3.5-10.5 Normal (applies to non-numeri c results) [facility] Red Blood Count 4.30-5.70 Normal (applies to non-numeric results) [facility] Hemoglobin 13.5-17.5 Normal (applies to non-numeric resul ts) [facility] Hematocrit 38.8-50.0 Normal (applies to non-numeric resul ts) [facility] Mean Corpuscular Volume 81.2-95.1 Normal (applies to non- numeric results) [facility] Mean Corpuscular Hgb 25.6-32.2 Normal (applies to non-num emili results) [facility] Mean Corpuscular Hgb Conc 32.0-36.0 Normal (applies to no n-numeric results) [facility] Red Cell Distribution Width 11.8-15.6 Normal (appli es to non-numeric results) [facility] Platelet Count 368 x10 3/uL 150-450 Normal (applies to non-numeric results) [facility] Mean Platelet Volume 9.4-12.4 Normal (applies to non-num emili results) [facility] Neutrophils% (Auto) 31.0-71.0 Above high normal [facility] Lymphocytes% (Auto) 20.0-55.0 Below low normal [facility] Monocytes% (Auto) 4.0-12.0 Normal (applies to non-numeri c results) [facility] Eosinophils% (Auto) 1.0-8.0 Below low normal [facility] Basophils% (Auto) 0.0-2.0 Normal (applies to non-numeri c results) [facility] Immature Granulocytes% (Auto) 0.0-2.0 Normal (celso lies to non-numeric results) [facility] Neutrophils# (Auto) 1.50-6.20 Above high normal [facility] Lymphocytes# (Auto) 1.20-4.00 Normal (applies to non-nume scarlett results) [facility] Monocytes# (Auto) 0.00-0.90 Normal (applies to non-numeri c results) [facility] Eosinophils# (Auto) 0.00-0.50 Normal (applies to non-nume scarlett results) [facility] Basophils# (Auto) 0.00-0.20 Normal (applies to non-numeri c results) [facility] Immature Granulocytes# (Auto) 0.00-7.00 No rmal (applies to non-numeric results) [facility] ID Date Data Source [id number] 02/22/2020 12:00:00 AM EST [facility] Name Value Range Interpretation Code Description Data Olive rce(s) Supporting Document(s) SARS coronavirus 2 RNA [Presence] in Res piratory specimen by ARIK with probe [facility] and reported by [employer]. ID Date Data Source [id number] 10/29/2019 07:55:00 AM EDT [facility] ([facility]) Name Value Range Interpretation Code Description Data Olive rce(s) Supporting Document(s) Thyrotropin [Units/volume] in Serum or Plasma by Detec tion limit <= 0.05 mIU/L 3.18 uIU/mL 0.36-3.74 [facility] ([facility] ) ID Date Data Source [id number] 10/29/2019 07:55:00 AM EDT [facility] ([facility]) Name Value Range Interpretation Code Description Data Olive rce(s) Supporting Document(s) Triglyceride [Mass/volume] in Serum or Plasma 93 mg/dL 30-150 [facility] ([facility]) Cholesterol [Mass/volume] in Serum or Plasma 129 mg/dL 131-200 [facility] ([facility]) Cholesterol in HDL [Mass/volume] in Serum or Plasma 31 mg/dL 35-60 [facility] ([facility]) Cholesterol in LDL [Mass/volume] in Serum or Plasma by calcu lation 79 CALC 50-159 [facility] ([facility]) ID Date Data Source [id number] 10/29/2019 07:55:00 AM EDT [facility] ([facility]) Name Value Range Interpretation Code Description Data Olive rce(s) Supporting Document(s) Glucose [Mass/volume] in Serum or Plasma 95 mg/dL 74-99 [facility] ([facility]) 100-125 mg/dL PRE-DIABETES/FASTING >126 mg/dL DIABETES/FASTING Urea nitrogen [Mass/volume] in Serum or Plasma 16 mg/dL 7-18 [facility] ([facility]) Creatinine 1.3 mg/dL 0.6-1.3 [facility] ([facility]) Sodium [Moles/volume] in Serum or Plasma 149 meq/L 136-145 [facility] ([facility]) NOTE: LYTES AND AST VERIFIED Chloride [Moles/volume] in Serum or Plasma 111 meq/L 98-107 [facility] ([facility]) Potassium [Moles/volume] in Serum or Plasma 4.0 meq/L 3.5-5.1 [facility] ([facility]) Calcium [Mass/volume] in Serum or Plasma 9.2 mg/dL 8.5-10.1 [facility] ([facility]) Carbon dioxide, total [Moles/volume] in Serum or Plasma 26 meq/L 21 -32 [facility] ([facility]) Alkaline phosphatase isoenzyme [Units/volume] in Serum or Pl asma 71 mg/dL 46-116 [facility] ([facility]) Aspartate aminotransferase [Enzymatic activity/volume] in Se rum or Plasma 5 U/L 15-37 [facility] ([facility]) Total Bilirubin 0.4 mg/dL 0.2-1.0 [facility] ([facility]) Albumin [Mass/volume] in Serum or Plasma 4.1 g/dL 3.4-5.0 [facility] ([facility]) Proteinase 3 Ab [Units/volume] in Serum 7.2 g/dL 6.4-8.2 [facility] ([facility]) Alanine aminotransferase [Enzymatic activity/volume] in Seru m or Plasma 22 U/L 12-78 [facility] ([facility]) A/G Ratio 1.32 CALC 1.00-1.90 [facility]) Glomerular filtration rate/1.73 sq M pre dicted among non-blacks [Volume Rate/Area] in Serum or Plasma by Creatinine-based formula (MDRD) Laboratory test result [facility] Glomerular filtration rate/1.73 sq M pre dicted among blacks [Volume Rate/Area] in Serum or Plasma by Creatinine-based formula (MDRD) Laboratory test result [facility] <content>CHRONIC KIDNEY DISEASE STAGING PER NKF</content>
<content></content>
<content>STAGE I & II GFR >= 60 NORMAL TO MILDLY DECREASED</content>
<content>STAGE III GFR 30-59 MODERATELY DECREASED</content>
<content>STAGE IV GFR 15-29 SEVERELY DECREASED</content>
<content>STAGE V GFR <15 VERY LITTLE GFR LEFT</content>
<content>ESRD GFR <15 ON EMBROIDERY ASSISTANT</content>
<content></content> ID Date Data Source [id number] 10/29/2019 07:55:00 AM EDT [facility] ([facility]) Name Value Range Interpretation Code Description Data Olive rce(s) Supporting Document(s) Erythrocytes [#/volume] in Blood by Automated count 4.88 x10*6/UL 4.2 0-6.30 [facility] Leukocytes [#/volume] in Blood by Automated count 11.8 x10*3/UL 4.1-1 0.9 [facility] NOTE: RESULT VERIFIED. Hemoglobin [Mass/volume] in Blood 14.0 g/dL 12.0-18.0 [facility] MCV 81.9 fL 80.0-97.0 [facility] ([facility]) Hematocrit [Volume Fraction] of Blood by Automated count 40.0 % 3 7.0-51.0 [facility] MCH 28.7 pg 26.0-32.0 [facility] ([facility]) MCHC 35.0 g/dL 31.0-38.0 [facility] MPV 8.6 FL 7.8-11.0 [facility] ([facility]) Platelets [#/volume] in Blood by Automated count 443 x10*3/UL 140-440 [facility] ([facility]) Erythrocyte distribution width [Ratio] by Automated count 12.8 % 11.6-13.7 [facility] ([facility]) Mid % 7.4 % 1.7-9.3 [facility] Lymph % 30.1 % 10.0-58.5 [facility] ([facility]) Mid # 1.0 x10*3/UL 0.1-0.6 [facility] ([facility]) Lymph # 3.5 x10*3/UL 0.6-4.1 [facility] ([facility]) Neut % 62.5 % 37.0-92.0 [facility] ([facility]) Neut # 7.3 x10*3/UL 2.0-7.8 [facility] ([facility]) ID Date Data Source [id number] 10/21/2019 12:49:00 PM EDT [facility] ([facility]) Name Value Range Interpretation Code Description Data Olive rce(s) Supporting Document(s) Amylase [Enzymatic activity/volume] in Serum or Plasma 37 U/L 25- 115 [facility] ([facility]) <content>note:<nlbl:demographic_changed> </content>
<content></content> Lipoprotein lipase [Enzymatic activity/volume] in Serum or P lasma 138 U/L 73-393 [facility] ([facility], [facility]) <content>note:<nlbl:demographic_changed> </content>
<content></content> ID Date Data Source [id number] 10/21/2019 12:49:00 PM EDT [facility] ([facility]) Name Value Range Interpretation Code Description Data Olive rce(s) Supporting Document(s) Glucose, Fasting 120 mg/dL 70-100 [facility] ([facility]) Blood Urea Nitrogen 30 mg/dL 7-18 [facility] ([facility]) Creatinine For GFR 1.57 mg/dL 0.70-1.30 [facility] ([facility]) Potassium Serum 3.8 meq/L 3.5-5.1 [facility] ([facility]) Glomerular Filtration Rate 57.1 [facility] ([facility]) <content>Units are mL/min/1.73 m2</content>
<content></content>
<content>Chronic Kidney Disease Staging per NKF:</content>
<content></content>
<content>Stage I & II GFR >=60 Normal to Mildly Decreased</content>
<content>Stage III GFR 30-59 Moderately Decreased</content>
<content>Stage IV GFR 15-29 Severely Decreased</content>
<content>Stage V GFR <15 Very Little GFR Left</content>
<content>ESRD GFR <15 on EMBROIDERY ASSISTANT</content>
<content></content> Sodium Level 138 meq/L 136-145 [facility] ([facility]) Chloride Level 103 meq/L 98-107 [facility] ([facility]) Anion Gap 8 meq/L 8-16 [facility] ([facility]) Carbon Dioxide Level 27 meq/L 21-32 [facility] ([facility]) Calcium Level 10.9 mg/dL 8.5-10.1 [facility] ([facility]) Ast/Sgot 9 U/L 7-37 [facility] ([facility]) Alt/SGPT 33 U/L 12-78 [facility] ([facility]) Alkaline Phosphatase 96 U/L 45-117 [facility] ([facility]) Bilirubin,Total 0.7 mg/dL 0.2-1.0 [facility] ([facility]) Albumin/Globulin Ratio 1.3 [facility] ([facility]) Albumin 5.0 GM/DL 3.2-5.2 [facility] ([facility] Total Protein 8.9 GM/DL 6.4-8.2 [facility] ([facility] ID Date Data Source [id number] 10/21/2019 12:49:00 PM EDT [facility] ([facility]) Name Value Range Interpretation Code Description Data Olive rce(s) Supporting Document(s) Red Blood Count 5.47 10 4.30-6.10 [facility] ([facility]) White Blood Count 15.2 10 4.0-10.0 [facility] ([facility] Hemoglobin 16.1 g/dL 13.5-17.5 [facility] ([facility]) Mean Corpuscular Volume 84.5 fl 80.0-96.0 M [facility] ([facility]) Hematocrit 46.2 % 42.0-52.0 [facility] Mean Corpuscular Hemoglobin 29.4 pg 27.0-33.0 [facility] ([facility] Mean Corpuscular HGB Conc 34.8 g/dL 32.0-36.5 [facility] ([facility]) Platelet Count, Automated 472 10 150-450 [facility] ([facility]) Red Cell Distribution Width 11.9 % 11.5-14.5 [facility] ([facility] Neutrophils % 84.1 % 36.0-66.0 [facility] ([facility]) Eos % 0.0 % 0.0-3.0 [facility] ([facility]) [place] % 6.2 % 0.0-5.0 [facility] ([facility]) Lymph % 9.3 % 24.0-44.0 [facility] ([facility]) Nucleated Red Blood Cell % 0.0 % 0-0 [facility] ([facility]) Immature Granulocyte % 0.3 % 0-3.0 [facility] Baso % 0.1 % 0.0-1.0 [facility] ([facility]) Neutrophils # 12.8 10 1.5-8.5 [facility] ([facility]) Lymph # 1.4 10 1.5-5.0 [facility] ([facility]) [place] # 1.0 10 0.0-0.8 [facility] ([facility]) Eos # 0.0 10 0.0-0.5 [facility] ([facility]) Baso # 0.0 10 0.0-0.2 [facility] ([facility]) ID Date Data Source [id number] 06/07/2019 03:56:00 PM EDT [facility]) Name Value Range Interpretation Code Description Data Olive rce(s) Supporting Document(s) Group A Strep Culture Laboratory test result [facility] ([facility]) FULL REPORT IN LAB NOTES ([facility] NEGATIVE FOR STREP PYOGENES (GROUP A) Procedure Social History Code Duration Value Status Description Data Source(s ) Smoking 02/24/2020 12:00:00 AM EST Patient has never smoked co mpleted Patient has never smoked [facility] ([facility]) Smoking 10/29/2019 12:00:00 AM EDT Patient is a former smoker completed Patient is a former smoker [facility] ([facility]) Vital Signs ID Date Data Source UNK Name Value Range Interpretation Code Description Data Source(s) Body mass index (BMI) [Ratio] 28.5 kg/m2 28.5 k g/m2 [facility] ([facility]) Body height 72 [in_i] 72 [in_i] [facility] ([facility]) 6'0" Body weight 210.00 [lb_av] 210.00 [lb_av] [facility] ([facility]) Body temperature 98.4 [degF] 98.4 [degF] [facility] ([facility]) Oxygen saturation in Arterial blood by Pulse oximetry 98 % 98 % [facility] ([facility]) Respiratory rate 18 /min 18 /min [facility] ( [facility]) Heart rate 87 /min 87 /min [facility] ([facility]) Diastolic blood pressure 80 mm[Hg] 80 mm[Hg] [facility] ([facility]) Systolic blood pressure 150 mm[Hg] 150 mm[Hg] [facility] ([facility]) Body height 72 [in_i] 72 [in_i] [facility] ([facility]) 6'0" Heart rate 61 /min 61 /min [facility] ([facility]) Diastolic blood pressure 60 mm[Hg] 60 mm[Hg] [facility] ([facility]) Systolic blood pressure 110 mm[Hg] 110 mm[Hg] [facility] ([facility]) Body mass index (BMI) [Ratio] 27.4 kg/m2 27.4 k g/m2 [facility] ([facility]) Body weight 202.00 [lb_av] 202.00 [lb_av] [facility] ([facility]) Body mass index (BMI) [Ratio] 28.2 kg/m2 28.2 k g/m2 [facility] ([facility]) Body weight 208.00 [lb_av] 208.00 [lb_av] [facility] ([facility]) Body height 72 [in_i] 72 [in_i] [facility] ([facility]) 6'0" Diastolic blood pressure 80 mm[Hg] 80 mm[Hg] [facility] ([facility]) Systolic blood pressure 120 mm[Hg] 120 mm[Hg] [facility] ([facility]) Body mass index (BMI) [Ratio] 26.6 kg/m2 26.6 k g/m2 [facility] ([facility]) Oxygen saturation in Arterial blood by Pulse oximetry 100 % 100 % [facility] ([facility]) Air Body weight 196.00 [lb_av] 196.00 [lb_av] [facility] ([facility]) Body height 72 [in_i] 72 [in_i] [facility] ([facility]) 6'0" Heart rate 83 /min 83 /min [facility] ([facility]) Diastolic blood pressure 84 mm[Hg] 84 mm[Hg] [facility] ([facility]) Systolic blood pressure 118 mm[Hg] 118 mm[Hg] [facility] ([facility]) Body mass index (BMI) [Ratio] 28.5 kg/m2 28.5 k g/m2 [facility]) Body height 72 [in_i] 72 [in_i] [facility] ([facility]) 6'0" Body weight 210.00 [lb_av] 210.00 [lb_av] [facility] ([facility]) Body temperature 97.1 [degF] 97.1 [degF] [facility] ([facility]) Oxygen saturation in Arterial blood by Pulse oximetry 99 % 99 % [facility] ([facility]) Respiratory rate 20 /min 20 /min [facility] ( [facility]) Heart rate 91 /min 91 /min [facility] ([facility]) Diastolic blood pressure 85 mm[Hg] 85 mm[Hg] [facility] ([facility]) Systolic blood pressure 138 mm[Hg] 138 mm[Hg] [facility] ([facility]) Body mass index (BMI) [Ratio] 29.8 kg/m2 29.8 k g/m2 [facility] ([facility] Heart rate 74 /min 74 /min [facility] Diastolic blood pressure 62 mm[Hg] 62 mm[Hg] [facility] Systolic blood pressure 120 mm[Hg] 120 mm[Hg] [facility] Body weight 220.00 [lb_av] 220.00 [lb_av] [facility] ([facility] Body height 72 [in_i] 72 [in_i] [facility] ([facility] 6'0" Body mass index (BMI) [Ratio] 29.8 kg/m2 29.8 k g/m2 [facility] ([facility]) Body height 72 [in_i] 72 [in_i] [facility] ([facility]) 6'0" Body weight 220.00 [lb_av] 220.00 [lb_av] [facility] ([facility]) Body temperature 98.9 [degF] 98.9 [degF] [facility] ([facility]) Oxygen saturation in Arterial blood by Pulse oximetry 112 % 112 % [facility] ([facility]) Respiratory rate 16 /min 16 /min [facility] Heart rate 112 /min 112 /min [facility] ([facility]) Diastolic blood pressure 84 mm[Hg] 84 mm[Hg] [facility] ([facility]) Systolic blood pressure 133 mm[Hg] 133 mm[Hg] [facility] ([facility]) ID Date Data Source [id number] 04/06/2020 08:33:00 AM EST [facility] Name Value Range Interpretation Code Description Data Source(s) Weight Measurement Method 8 8 [facility] Weight 3200 3200 [facility] pital Respiratory Effort 1 1 [facility] Respiratory Rate 16 16 [facility] Pulse Assessment Method 4 4 G [facility] Pulse Rate 88 88 [facility] pital Height 72 72 [facility] pital Blood Pressure 123/70 123/70 [facility] Weight Measurement Method 8 8 [facility] Weight 3200 3200 [facility] pital Respiratory Effort 1 1 [facility] Respiratory Rate 16 16 [facility] Pulse Assessment Method 4 4 G [facility] Pulse Rate 119 119 [facility] pital Height 72 72 [facility] pital Blood Pressure 144/102 144/102 [facility]
--- OUTSIDE RECORDS SUMMARY | 2020-04-14 19:34 | CCD | Continuity of Care Document ---
Author Author Maciel FARIAS Organization Unknown Address [address] [facility] [address] [place] [address] Phone [phone] Care Team Providers Care Box Nailer Name Role Phone Berhane Farias AUTM [phone] Problems Description No Information Available Social History [...] SIG Qnty Indications Ordering Provide r Date Tramadol HCL 50mg Tablets 1 tab every 12 hours as needed for pain 30tabs Belkis Mendez JR 12/02/2019 Ondansetron 4mg Tablets Dispers one odt every 6 hours as needed for nausea 60tabs POLI Chacon JR 10/29/2019 Tamsulosin HCL 0.4mg Capsules 1 daily 1/2 hour after same meal 30caps POLI Mendez JR History Medications Protonix 40mg Tablets DR 1 by mouth every morning 30tabs POLI Mendez JR 020 - 12/02/2019 Oxycodone-Acetaminophen 2.5-325mg Tablets Take one tablet by mouth as needed bid; MDD=2 14tabs Ro POLI Richey JR 10/29/2019 - 12/02/2019 Immunizations Description No Information Available Vital Signs Date Vital Result Comment 12/02/2019 10:41am BP Systolic 120 mmHg BP Diastolic 80 mmHg Height 72 inches 6'0" Weight 208.00 lb BMI (Body Mass Index) 28.2 kg/m2 10/29/2019 7:56am BP Systolic 118 mmHg BP Diastolic 84 mmHg Heart Rate 83 /min Height 72 inches 6'0" Weight 196.00 lb O2 % BldC Oximetry 100 % RM Air BMI (Body Mass Index) 26.6 kg/m2 Results Test Acquired Date Facility Test Result H/L Range Note Complete Blood Count 10/29/2019 [facility] Integrated Pest Management Technician: [place] [address] [phone] WBC 11.8 x10*3/UL High 4.1 - 10.9 [...] 2.0 - 7.8 Comprehensive Chem Profile 10/29/2019 [facility] Integrated Pest Management Technician: [place] [address] [phone] Glucose 95 mg/dL 74 - 99 2 [...] 60 mL/min >60 4 Lipid Profile 10/29/2019 [facility] Integrated Pest Management Technician: [place] [address] [phone] Cholesterol 129 mg/dL Low 131 - 200 Triglycerides 93 mg/dL 30 - 150 HDL Cholesterol 31 mg/dL Low 35 - 60 LDL (Calculated) 79 CALC 50 - 159 Laboratory test finding 10/29/2019 [facility] Integrated Pest Management Technician: [place] [address] [phone] Thyroid Stimulating Hormone 3.18 uIU/mL 0.3 6 [...] LITTLE GFR LEFT ESRD GFR <15 ON ELECTRICIAN THIRD Procedures Date Code Description Status 10/29/2019 73327 EKG/Interpretation & Report Comp leted Medical Devices Description No Information Available Encounters Type Date Location Provider Dx Diagnosis Office Visit 12/02/2019 10:40a [facility] R11.0 Nausea M54.5 Low back pain Office Visit 10/29/2019 8:00a [facility] [place] N17.9 Acute kidney failure, unspec ified K21.9 Gastro-esophageal reflux dis ease without esophagitis K76.0 Fatty (change of) liver, not elsewhere classified E78.5 Hyperlipidemia, unspecified Assessments Date Code Description Provider 12/02/2019 R11.0 Nausea POLI Fields JR 12/02/2019 M54.5 Low back pain POLI Fields JR 10/29/2019 N17.9 Acute kidney failure, unspecifie d POLI Mendez JR 10/29/2019 K21.9 Gastro-esophageal reflux disease without esophagitis POLI Mendez JR 10/29/2019 K76.0 Fatty (change of) liver, not els ewhere classified POLI Mendez JR 10/29/2019 E78.5 Hyperlipidemia, unspecified Robe POLI Cordoba JR Plan of Treatment Future Appointment(s):* 05/02/2020 8:00 am - POLI Mendez JR at [facility] 12/02/2019 - POLI Mendez JR* R11.0 Nausea* Comments:* Refilled Zofran, possible GI referral if no improvement. Work slip given * M54.5 Low back pain* Comments:* Gave tramadol for pain * All * New Medication:* Tramadol HCL 50 mg - 1 tab every 12 hours as needed for pain Functional Status Description No Information Available Mental Status Description No Information Available Referrals Refer to Reason for Referral Status Appt Date Arslan Hackett M.D. CONSULT FOR HOSP F/U OF ACUTE KIDNEY INJUR Y Closed 11/05/2019 [facility] [address], [place] [address] [phone]
--- OUTSIDE RECORDS SUMMARY | 2020-04-14 19:34 | CCD | Continuity of Care Document ---
Author Author Maciel FARIAS Organization Unknown Address [address] [facility] [address] [place] [address] Phone [phone] Care Team Providers Care Mule Operator Name Role Phone Berhane Farias AUTM [phone] Problems Description No Information Available Social History [...] H/L Range Note Complete Blood Count 10/29/2019 [facility] Rn: [place] [address] [phone] WBC 11.8 x10*3/UL High 4.1 - 10.9 [...] 2.0 - 7.8 Comprehensive Chem Profile 10/29/2019 [facility] Rn: [place] [address] [phone] Glucose 95 mg/dL 74 - 99 2 [...] 60 mL/min >60 4 Lipid Profile 10/29/2019 [facility] [place]n: [place] [address] [phone] Cholesterol 129 mg/dL Low 131 - 200 Triglycerides 93 mg/dL 30 - 150 HDL Cholesterol 31 mg/dL Low 35 - 60 LDL (Calculated) 79 CALC 50 - 159 Laboratory test finding 10/29/2019 [facility] Rn: [place] [address] [phone] Thyroid Stimulating Hormone 3.18 uIU/mL 0.3 6 [...] LITTLE GFR LEFT ESRD GFR <15 ON VAULT KEEPER Procedures Date Code Description Status 10/29/2019 54577 EKG/Interpretation & Report Comp leted Medical Devices Description No Information Available Encounters Type Date Location Provider Dx Diagnosis Office Visit 12/02/2019 10:40a [facility] R11.0 Nausea M54.5 Low back pain Office Visit 10/29/2019 8:00a [facility] POLI Machado JR N17.9 Acute kidney failure, unspec ified [...] POLI Mendez JR 10/29/2019 E78.5 Hyperlipidemia, unspecified POLI Briceño JR Plan of Treatment Future Appointment(s):* 05/02/2020 8:00 am - POLI Mendez JR at [facility] 02/17/2020 - POLI Mendez JR* All * New Medication:* Buspirone HCL 5 mg - take one tablet by mouth tid prn Functional Status Description No Information Available Mental Status Description No Information Available Referrals Refer to Reason for Referral Status Appt Date Arslan Hackett M.D. CONSULT FOR HOSP F/U OF ACUTE KIDNEY INJUR Y Closed 11/05/2019 [facility] [address], [facility] [place] [address] [phone]
--- NOTE | 2020-04-14 19:40 | ECGEPIP ---
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
== END 2020-04-14 19:40 | disposition home or self-care (01) ==
LOC: M ED 15:33 → EDBD 15:33 → M ED 19:40
DX: T40.1X1A Poisoning by heroin, accidental (unintentional), initial encounter (principal); Y92.9 Unspecified place or not applicable; Y93.9 Activity, unspecified; G43.909 Migraine, unspecified, not intractable, without status migrainosus; Z88.0 Allergy status to penicillin; Z88.1 Allergy status to other antibiotic agents

== ENCOUNTER 2020-09-09 18:18 | Emergency (ER) | payer BC, OTHER ==
[~2020-09-09] VITALS: Ht 182.9 cm; Wt 86.5 kg
[~2020-09-09 18:18] MED LIST changes: +CLON-412 PO; +ONDA-84 PO; +PROP20TA72 PO
[2020-09-09 18:19] VITALS: BP 141/72
== END 2020-09-09 20:50 | disposition left against medical advice (07) ==
LOC: M ED 18:18
DX: Z53.21 Procedure and treatment not carried out due to patient leaving prior to being seen by health care provider (principal)

== ENCOUNTER → 2021-04-11 | Outpatient (CLI) | payer MEDICAID ==
[2021-04-11 12:09] LABS: HEMATOCRIT 39.3 % (42.0-52.0); HEMOGLOBIN 12.9 g/dl (13.5-17.5); MEAN CORPUSCULAR HEMOGLOBIN 29.5 pg (27.0-33.0); MEAN CORPUSCULAR HGB CONC 32.8 g/dl (32.0-36.5); MEAN CORPUSCULAR VOLUME 89.7 fl (80.0-96.0); PLATELET COUNT, AUTOMATED 296 10^3/uL (150-450); RED BLOOD COUNT 4.38 10^6/uL (4.30-6.10); WHITE BLOOD COUNT 8.1 10^3/uL (4.0-10.0)
[2021-04-11 13:39] LABS: GC DNA AMPLIFICATION NEGATIVE (NEGATIVE)
[2021-04-11 13:59] LABS: ALT/SGPT 20 U/L (12-78); BILIRUBIN,TOTAL 0.3 MG/DL (0.2-1.0); BLOOD UREA NITROGEN 17 MG/DL (7-18); CALCIUM LEVEL 9.5 MG/DL (8.5-10.1); CARBON DIOXIDE LEVEL 29 MEQ/L (21-32); CHLORIDE LEVEL 107 MEQ/L (98-107); CREATININE FOR GFR 1.19 MG/DL (0.70-1.30); GLOMERULAR FILTRATION RATE > 60.0 (>60); GLUCOSE, FASTING 107 MG/DL (70-100); POTASSIUM SERUM 4.2 MEQ/L (3.5-5.1); SODIUM LEVEL 141 MEQ/L (136-145); TOTAL PROTEIN 7.4 GM/DL (6.4-8.2)
== END ==
LOC: M LAB 11:10
PROVIDERS: ATTEND Family Medicine
DX: F11.21 Opioid dependence, in remission (principal)

== ENCOUNTER → 2021-07-29 | Outpatient (CLI) | payer MEDICAID, OTHER, SELFPAY ==
[~2021-07-29] MED LIST changes: +BUSP10TA; +BUSP15TA47; +BUSP5TA; +CLON0.2T; +SUMA50TA2; +ULTR1TAB PO; -ULTR37.54 PO; +ZUBS1SUB
== END ==
LOC: M LABSMTC 11:08
PROVIDERS: ATTEND Anesthesiology
DX: Z01.812 Encounter for preprocedural laboratory examination (principal); Z20.822 Contact with and (suspected) exposure to COVID-19

== ENCOUNTER 2021-08-03 08:46 | Day surgery (SDC) | payer OTHER, SELFPAY ==
[~2021-08-03] VITALS: Ht 182.9 cm; Wt 83.9 kg
[~2021-08-03 08:46] MED LIST changes: +NS 1,000 ML IV ONE
[2021-08-03] MEDS ORDERED: propofoL 200 MG/20 ML VIAL As Ordered ONE (10:30)
[2021-08-03] MEDS ORDERED: LIDOCAINE 2% 100MG/5ML SDV (FOR ANES.) As Ordered ONE (10:42)
[2021-08-03 11:20] VITALS: BP 121/35
== END 2021-08-03 11:43 | disposition home or self-care (01) ==
LOC: M OPP 08:46
PROVIDERS: ATTEND Surgery
DX: K29.70 Gastritis, unspecified, without bleeding (principal); R11.10 Vomiting, unspecified; Z79.891 Long term (current) use of opiate analgesic; Z88.0 Allergy status to penicillin; Z88.1 Allergy status to other antibiotic agents; Z88.2 Allergy status to sulfonamides; Z88.8 Allergy status to other drugs, medicaments and biological substances; Z86.69 Personal history of other diseases of the nervous system and sense organs; F17.290 Nicotine dependence, other tobacco product, uncomplicated

== ENCOUNTER → 2021-08-08 | Outpatient (REF) | payer OTHER ==
[~2021-08-08] MED LIST changes: -NS 1,000 ML IV ONE
== END ==
LOC: M SFHCLERA 07:10
PROVIDERS: ATTEND Family Medicine
DX: D64.9 Anemia, unspecified (principal); Z87.898 Personal history of other specified conditions

== ENCOUNTER → 2022-07-16 | Outpatient (CLI) | payer OTHER ==
[2022-07-16 11:18] LABS: BASO # 0.1 10^3/uL (0.0-0.2); BASO % 0.7 % (0.0-1.0); EOS # 0.1 10^3/uL (0.0-0.5); EOS % 1.5 % (0.0-3.0); HEMATOCRIT 34.6 % (42.0-52.0); LYMPH # 2.1 10^3/uL (1.5-5.0); LYMPH % 31.5 % (24.0-44.0); MEAN CORPUSCULAR HEMOGLOBIN 28.3 pg (27.0-33.0); MEAN CORPUSCULAR HGB CONC 31.8 g/dl (32.0-36.5); MEAN CORPUSCULAR VOLUME 88.9 fl (80.0-96.0); MONO # 0.6 10^3/uL (0.0-0.8); MONO % 8.6 % (2.0-8.0); NEUTROPHILS # 3.9 10^3/uL (1.5-8.5); NEUTROPHILS % 57.4 % (36.0-66.0); PLATELET COUNT, AUTOMATED 336 10^3/uL (150-450); RED BLOOD COUNT 3.89 10^6/uL (4.30-6.10); WHITE BLOOD COUNT 6.8 10^3/uL (4.0-10.0)
[2022-07-16 11:53] LABS: ALBUMIN 3.7 G/DL (3.2-5.2); ALKALINE PHOSPHATASE 129 U/L (46-116); ALT/SGPT 20 U/L (7.0-40); AST/SGOT 28 U/L (<34); BILIRUBIN,TOTAL 0.2 MG/DL (0.3-1.2); BLOOD UREA NITROGEN 21 MG/DL (9-23); CALCIUM LEVEL 9.2 MG/DL (8.5-10.1); CARBON DIOXIDE LEVEL 30 MMOL/L (20-31); CHLORIDE LEVEL 105 MMOL/L (98-107); CREATININE FOR GFR 1.15 MG/DL (0.70-1.30); GLOMERULAR FILTRATION RATE > 60.0 (>60); GLUCOSE, FASTING 86 MG/DL (60-100); IRON (FE) 38 UG/DL (65-175); PERCENT SATURATION 12.7 % (19.7-50.0); POTASSIUM SERUM 4.5 MMOL/L (3.5-5.1); SODIUM LEVEL 140 MMOL/L (136-145); TOTAL IRON BINDING CAPACITY 299 UG/DL (250-425); TOTAL PROTEIN 6.4 G/DL (5.7-8.2)
[2022-07-16 11:55] LABS: FOLATE > 24.0 NG/ML (>5.4); VITAMIN B12 LEVEL 522 PG/ML (211-911)
[2022-07-16 11:56] LABS: FERRITIN 142.3 NG/ML (10.5-307.3)
== END ==
LOC: M LAB 10:44
PROVIDERS: ATTEND Family Medicine
DX: D64.9 Anemia, unspecified (principal)

== ENCOUNTER → 2023-08-21 | Outpatient (REF) | payer OTHER ==
[2023-08-21 17:07] LABS: APPEARANCE, URINE CLEAR (CLEAR); BACTERIA, URINE AUTO NEGATIVE (NEGATIVE); BILIRUBIN, URINE AUTO NEGATIVE (NEGATIVE); BLOOD, URINE BLOOD NEGATIVE (NEGATIVE); COLOR, URINE YELLOW (YELLOW); GLUCOSE, URINE (UA) AUTO NEGATIVE (NEGATIVE); KETONE, URINE AUTO NEGATIVE (NEGATIVE); LEUKOCYTE ESTERASE, URINE AUTO NEGATIVE (NEGATIVE); MUCUS, URINE SMALL (NEGATIVE); NITRITE, URINE AUTO NEGATIVE (NEGATIVE); PROTEIN, URINE AUTO NEGATIVE (NEGATIVE); RBC, URINE AUTO 0 /HPF (0-3); SPECIFIC GRAVITY URINE AUTO 1.024 (1.002-1.035); SQUAMOUS EPITHELIAL CELL UR AU 0 /HPF (0-6); UROBILINOGEN, URINE AUTO 0.2 mg/dL (0.0-2.0); WBC, URINE AUTO 1 /HPF (0-3)
[2023-08-21 17:15] LABS: BASO % 0.6 % (0.0-1.0); HEMATOCRIT 40.9 % (42.0-52.0); HEMOGLOBIN 13.5 g/dl (13.5-17.5); LYMPH # 2.1 10^3/uL (1.5-5.0); LYMPH % 34.6 % (24.0-44.0); MEAN CORPUSCULAR HEMOGLOBIN 28.8 pg (27.0-33.0); MEAN CORPUSCULAR VOLUME 87.4 fl (80.0-96.0); MONO # 0.5 10^3/uL (0.0-0.8); MONO % 7.8 % (2.0-8.0); NEUTROPHILS # 3.5 10^3/uL (1.5-8.5); NEUTROPHILS % 56.8 % (36.0-66.0); PLATELET COUNT, AUTOMATED 431 10^3/uL (150-450); RED BLOOD COUNT 4.68 10^6/uL (4.30-6.10); WHITE BLOOD COUNT 6.2 10^3/uL (4.0-10.0)
[2023-08-21 17:39] LABS: ALBUMIN 4.3 G/DL (3.2-5.2); ALKALINE PHOSPHATASE 109 U/L (46-116); ALT/SGPT 34 U/L (7.0-40); AST/SGOT 17 U/L (<34); BILIRUBIN,TOTAL 0.3 MG/DL (0.3-1.2); BLOOD UREA NITROGEN 14 MG/DL (9-23); CALCIUM LEVEL 9.9 MG/DL (8.5-10.1); CARBON DIOXIDE LEVEL 24 MMOL/L (20-31); CHLORIDE LEVEL 107 MMOL/L (98-107); CREATININE FOR GFR 1.05 MG/DL (0.70-1.30); GLOMERULAR FILTRATION RATE > 60.0 (>60); GLUCOSE, FASTING 96 MG/DL (60-100); POTASSIUM SERUM 3.8 MMOL/L (3.5-5.1); SODIUM LEVEL 140 MMOL/L (136-145); TOTAL PROTEIN 7.4 G/DL (5.7-8.2)
[2023-08-21 17:46] LABS: HEPATITIS B SURFACE ANTIBODY NEGATIVE (POSITIVE)
[2023-08-21 17:58] LABS: HEPATITIS B SURFACE ANTIGEN NEGATIVE (NEGATIVE)
[2023-08-21 18:10] LABS: HIV 1&2 SCREEN NEGATIVE (NEGATIVE)
[2023-08-21 18:19] LABS: HEPATITIS C VIRUS ABY INDEX < 0.02 INDEX (<0.8)
[2023-08-23 09:37] LABS: HEPATITIS A IgG TOTAL REACTIVE (NON-REACTIVE); HEPATITIS B CORE ANTIBODY IGG NON-REACTIVE (NON-REACTIVE)
== END ==
LOC: M SFHCLERA 12:22
PROVIDERS: ATTEND Family Medicine
DX: Z20.5 Contact with and (suspected) exposure to viral hepatitis (principal); R03.0 Elevated blood-pressure reading, without diagnosis of hypertension

== ENCOUNTER → 2024-03-09 | Outpatient (REF) | payer MEDICAID, OTHER ==
[2024-03-15 20:08] LABS: AMPHETAMINE SCREEN, URINE See Final Results ng/mL (Cutoff=1000); AMPHETAMINE, URINE GC/MS 883 ng/mL (Cutoff=500); AMPHETAMINES , URINE Positive (Cutoff=1000); BARBITURATES SCREEN, URINE Negative ng/mL (Cutoff=200); BENZODIAZEPINES, URINE SCREEN Negative ng/mL (Cutoff=200); CANNABINOID SCREEN, URINE See Final Results ng/mL (Cutoff=20); CANNABINOID, URINE Positive (Cutoff=20); CARBOXY THC (GC/MS) >300 ng/mL (Cutoff=10); COCAINE SCREEN, URINE Negative ng/mL (Cutoff=300); CREATININE, URINE 129.2 mg/dL (20.0-300.0); METHADONE, URINE SCREEN Negative ng/mL (Cutoff=300); METHAMPHETAMINE, URINE Negative (Cutoff=500); OPIATE SCREEN, URINE Negative ng/mL (Cutoff=300); OXYCODONE, SCREEN, URINE Negative ng/mL (Cutoff=100); PCP SCREEN, URINE Negative ng/mL (Cutoff=25); SPECIFIC GRAVITY, URINE 1.024 (.); pH, URINE 5.3 (4.5-8.9)
== END ==
LOC: M SFHCLERA 16:52
PROVIDERS: ATTEND Family Medicine
DX: F11.90 Opioid use, unspecified, uncomplicated (principal)

== ENCOUNTER → 2024-07-06 | Outpatient (REF) | payer OTHER, MEDICAID ==
[~2024-07-06] MED LIST changes: -FLOM0.4C39 PO; +TAMS-18 PO
== END ==
LOC: M SFHCLERA 17:32
PROVIDERS: ATTEND Family Medicine
DX: F11.90 Opioid use, unspecified, uncomplicated (principal)

== ENCOUNTER → 2024-10-23 | Outpatient (CLI) | payer OTHER | LOC: M SOG 06:51 | PROVIDERS: ATTEND Physician Assistant | DX: M25.511 Pain in right shoulder (principal) ==

== ENCOUNTER → 2024-10-27 | Outpatient (CLI) | payer OTHER | LOC: M SOG 07:02 | PROVIDERS: ATTEND Physician Assistant | DX: M25.511 Pain in right shoulder (principal) ==

== ENCOUNTER → 2024-12-09 | Outpatient (CLI) | payer OTHER | LOC: M SOG 12:58 | PROVIDERS: ATTEND Orthopaedic Surgery Hand Surgery | DX: M79.642 Pain in left hand (principal) ==

== ENCOUNTER → 2024-12-28 | Outpatient (CLI) | payer OTHER | LOC: M SOG 07:32 | PROVIDERS: ATTEND Physician Assistant | DX: M79.642 Pain in left hand (principal); Z53.9 Procedure and treatment not carried out, unspecified reason ==